=== PATIENT | male | born 1945 | race Caucasian/White ===

== ENCOUNTER 2021-12-03 00:08 | Emergency (ER) | payer OTHER, MEDICAID ==
[~2021-12-03] VITALS: Ht 188 cm; Wt 95.3 kg
[2021-12-03 01:27] VITALS: BP 142/68
== END 2021-12-03 02:43 | disposition home or self-care (01) ==
LOC: ER 00:08
DX: T83.091A Other mechanical complication of indwelling urethral catheter, initial encounter (principal)
CPT/HCPCS: 51702

== ENCOUNTER 2021-12-04 23:48 | Emergency (ER) | payer OTHER, MEDICAID ==
[~2021-12-04] VITALS: Ht 188 cm; Wt 95.3 kg
[2021-12-04 23:50] VITALS: BP 150/84
== END 2021-12-05 16:25 | disposition left against medical advice (07) ==
LOC: ER 23:48
DX: T83.091A Other mechanical complication of indwelling urethral catheter, initial encounter (principal); Z53.21 Procedure and treatment not carried out due to patient leaving prior to being seen by health care provider

== ENCOUNTER 2022-05-30 02:47 | Emergency (ER) | payer OTHER, MEDICAID ==
[~2022-05-30] VITALS: Ht 185.4 cm; Wt 113.0 kg
[2022-05-30 02:47] VITALS: BP 204/93
[2022-05-30 07:40] LABS: Urine Bacteria MANY /hpf (None Seen); Urine Blood 3+ /uL (Negative); Urine Specific Gravity 1.016 (1.001-1.035); Urine WBC 81 /hpf (0 - 3); Urine WBC Clumps PRESENT /hpf (None Seen)
[2022-05-30 08:02] LABS: Alcohol, Urine < 3.0 mg/dL (0-10); Amphetamine Screen, Urine NEGATIVE (NEGATIVE); Barbiturate Scree,Urine NEGATIVE (NEGATIVE); Benzodiazephine Screen, Urine NEGATIVE (NEGATIVE); Cannabinoid Screen, Urine NEGATIVE (NEGATIVE); Cocaine Screen, Urine NEGATIVE (NEGATIVE); Opiate Scree,Urine NEGATIVE (NEGATIVE); Phencyclidine Screen, Urine NEGATIVE (NEGATIVE)
[2022-05-30 08:07] LABS: Basophils # (auto) 0.1 10 ^3/uL (0-0.2); Basophils % (auto) 0.9 % (0.0-2.0); Eosinophils # (auto) 0.1 10 ^3/uL (0-0.8); Eosinophils % (auto) 0.9 % (0.0-7.0); Hematocrit 32.8 % (41.0-53.0); Hemoglobin 9.3 g/dL (13.5-17.5); Lymphocytes % (auto) 7.6 % (10.0-50.0); Mean Corpuscular Hemoglobin 15.3 pg (28.0-32.0); Mean Corpuscular Hgb Conc. 28.2 g/dL (32.0-36.0); Mean Corpuscular Volume 54.3 fL (80.0-100.0); Monocytes # (auto) 0.7 10 ^3/uL (0-1.3); Monocytes % (auto) 5.3 % (0.0-12.0); Neutrophils # (auto) 11.1 10 ^3/uL (1.6-8.6); Neutrophils % (auto) 85.3 % (37.0-80.0); Nucleated Red Blood Cells % 0.1 %; Red Blood Cells 6.04 10^6/uL (4.5-5.90)
[2022-05-30 08:09] LABS: Red Cell Distribution Width 21.5 % (11.8-14.3)
[2022-05-30 08:16] LABS: Albumin 4.1 g/dL (3.4-5.0); Calcium 9.1 mg/dL (8.5-10.1); Potassium 4.8 mmol/L (3.5-5.1)
[2022-05-30 08:20] LABS: BUN/Creatinine Ratio 18.1; Bilirubin, Total 0.5 mg/dL (0.2-1.0); Total Protein 7.9 g/dL (6.4-8.2)
[2022-05-30] MEDS ORDERED: HYDROcodone-ACET 5/325MG TAB PO ONE (08:30)
[2022-05-30] MEDS ORDERED: cefTRIAXone SOD 1,000 MG VL IM ONE (09:00)
[2022-05-30] MEDS ORDERED: cloNIDine HCL 0.1 MG TAB PO ONE (09:00)
== END 2022-05-30 09:41 | disposition left against medical advice (07) ==
LOC: ER 02:47
DX: N39.0 Urinary tract infection, site not specified (principal); I16.0 Hypertensive urgency; T83.9XXA Unspecified complication of genitourinary prosthetic device, implant and graft, initial encounter
CPT/HCPCS: 36415; 51702; 80053; 80307; 81001; 84484; 85025; 99284; J7030

== ENCOUNTER 2022-11-16 00:58 | Emergency (ER) | payer OTHER, MEDICAID ==
[~2022-11-16] VITALS: Ht 185.4 cm; Wt 105.0 kg
[2022-11-16 00:58] VITALS: BP 104/54
[2022-11-16 01:53] LABS: Urine Bacteria MANY /hpf (None Seen); Urine Blood 3+ /uL (Negative); Urine Mucus FEW (None Seen); Urine Specific Gravity 1.012 (1.001-1.035); Urine WBC 959 /hpf (0 - 3); Urine WBC Clumps PRESENT /hpf (None Seen)
== END 2022-11-16 02:14 | disposition left against medical advice (07) ==
LOC: ER 00:58
DX: T83.098A Other mechanical complication of other urinary catheter, initial encounter (principal); Z53.21 Procedure and treatment not carried out due to patient leaving prior to being seen by health care provider
CPT/HCPCS: 81001

== ENCOUNTER 2022-11-18 13:17 | Emergency (ER) | payer OTHER, MEDICAID ==
[~2022-11-18] VITALS: Ht 185.4 cm; Wt 105.5 kg
[2022-11-18] MEDS ORDERED: CIPR-173 PO (15:05)
[2022-11-18 15:07] VITALS: BP 145/82
== END 2022-11-18 15:13 | disposition home or self-care (01) ==
LOC: ER 13:17
DX: N39.0 Urinary tract infection, site not specified (principal); I10 Essential (primary) hypertension; Z46.6 Encounter for fitting and adjustment of urinary device

== ENCOUNTER 2022-12-14 08:45 | Inpatient (IN) | payer OTHER, MEDICAID ==
[~2022-12-14] VITALS: Ht 185.4 cm; Wt 108.1 kg
[~2022-12-14 08:45] MED LIST: CIPR-173 PO
[2022-12-14] MEDS ORDERED: levoFLOXacin 500MG 100 ML IV ONE (10:00)
[2022-12-14 10:05] LABS: Urine Bacteria FEW /hpf (None Seen); Urine Blood 3+ /uL (Negative); Urine Specific Gravity 1.014 (1.001-1.035); Urine WBC 101 /hpf (0 - 3)
[2022-12-14] MEDS ORDERED: LIDOCAINE 2% JELLY 11ml (GLYDO) ONE (10:36)
[2022-12-14] MEDS ORDERED: cefTRIAXone 1GM/50ML D5W 50 ML IV ONE (11:15)
[2022-12-14] MEDS ORDERED: LIDOCAINE 2% JELLY 11ml (GLYDO) UR ONE (11:15)
[2022-12-14] MEDS ORDERED: LACTATED RINGER'S 1,000 ML IV ONE (11:15)
[2022-12-14 11:36] LABS: Basophils # (auto) 0.1 10 ^3/uL (0-0.2); Eosinophils # (auto) 0 10 ^3/uL (0-0.8); Eosinophils % (auto) 0.1 % (0.0-7.0); Hemoglobin 8.6 g/dL (13.5-17.5); Lymphocytes # (auto) 0.3 10 ^3/uL (0.4-5.4); Lymphocytes % (auto) 2.7 % (10.0-50.0); Nucleated Red Blood Cells % 0.1 %
[2022-12-14 11:38] LABS: Basophils % (auto) 0.4 % (0.0-2.0); Hematocrit 29.9 % (41.0-53.0); Mean Corpuscular Hemoglobin 20.6 pg (28.0-32.0); Mean Corpuscular Hgb Conc. 28.8 g/dL (32.0-36.0); Mean Corpuscular Volume 71.8 fL (80.0-100.0); Monocytes # (auto) 0.9 10 ^3/uL (0-1.3); Monocytes % (auto) 7.2 % (0.0-12.0); Neutrophils # (auto) 10.6 10 ^3/uL (1.6-8.6); Neutrophils % (auto) 89.6 % (37.0-80.0); Red Blood Cells 4.17 10^6/uL (4.5-5.90); White Blood Cell 11.9 10^3/uL (4.4-10.8)
[2022-12-14 11:48] LABS: Red Cell Distribution Width 30.2 % (11.8-14.3)
[2022-12-14 11:56] LABS: Albumin 3.7 g/dL (3.4-5.0); Calcium 9.1 mg/dL (8.5-10.1); Potassium 4.3 mmol/L (3.5-5.1)
[2022-12-14 12:03] LABS: Bilirubin, Total 0.7 mg/dL (0.2-1.0); Total Protein 7.4 g/dL (6.4-8.2)
[2022-12-14] MEDS ORDERED: DOCUSATE SOD 100 MG CAP PO PRN (15:15)
[2022-12-14] MEDS ORDERED: ONDANSETRON HCL 4 MG/2 ML VIAL IV PRN (15:15)
[2022-12-14] MEDS ORDERED: MORPHINE SULFATE INJ 2 MG/ml SYRG IV PRN (15:15)
[2022-12-14] MEDS ORDERED: SODIUM CHLORIDE 0.9% 1,000 ML IV ONE (15:15)
[2022-12-14 16:28] LABS: INR 1.08 (0.9-1.15)
[2022-12-14] MEDS ORDERED: DEXTROSE (50%) 50ML SYRG IV PRN (16:30)
[2022-12-14] MEDS: ACCU-CHEK COMFORT CURVE STRIP VI SCH ×2 (17:29→22:00)
[2022-12-14] MEDS: InsuLIN REG 1unit/0.01ml Soln (100units/ml) SC SCH ×2 (17:30→22:00)
[2022-12-14 18:17] LABS: Hematocrit 27.4 % (41.0-53.0); Hemoglobin 8.1 g/dL (13.5-17.5)
[2022-12-14 18:37] LABS: Lactic Acid w/Reflex 2.5 mmol/L (0.4-2.0)
[2022-12-14 21:10] VITALS: BP 148/54
[2022-12-14 21:25] VITALS: BP 157/72
[2022-12-14] MEDS: SODIUM CHLORIDE 0.9% 1,000 ML IV SCH (23:35)
[2022-12-14 23:50] VITALS: BP 150/78
[2022-12-15] MEDS: SODIUM CHLORIDE 0.9% 1,000 ML IV SCH ×3 (00:57→16:15)
[2022-12-15 01:34] LABS: Hemoglobin 7.7 g/dL (13.5-17.5)
[2022-12-15 01:36] LABS: Hematocrit 25.5 % (41.0-53.0)
[2022-12-15] MEDS ORDERED: CAPE500T PO (02:13)
[2022-12-15 05:00] VITALS: BP 135/65
[2022-12-15] MEDS: InsuLIN REG 1unit/0.01ml Soln (100units/ml) SC SCH ×3 (07:00→17:00)
[2022-12-15] MEDS: ACCU-CHEK COMFORT CURVE STRIP VI SCH ×3 (07:01→17:00)
[2022-12-15 08:46] VITALS: BP 138/60
[2022-12-15 08:51] LABS: Basophils # (auto) 0 10 ^3/uL (0-0.2); Eosinophils # (auto) 0.2 10 ^3/uL (0-0.8); Hemoglobin 8.5 g/dL (13.5-17.5); Monocytes # (auto) 0.7 10 ^3/uL (0-1.3); Neutrophils # (auto) 4.4 10 ^3/uL (1.6-8.6)
[2022-12-15 08:54] LABS: Basophils % (auto) 0.5 % (0.0-2.0); Eosinophils % (auto) 2.8 % (0.0-7.0); Hematocrit 28.2 % (41.0-53.0); Lymphocytes # (auto) 0.8 10 ^3/uL (0.4-5.4); Lymphocytes % (auto) 13.5 % (10.0-50.0); Mean Corpuscular Hemoglobin 21.4 pg (28.0-32.0); Mean Corpuscular Volume 71.2 fL (80.0-100.0); Monocytes % (auto) 10.9 % (0.0-12.0); Neutrophils % (auto) 72.3 % (37.0-80.0); Nucleated Red Blood Cells % 0.1 %; Red Blood Cells 3.96 10^6/uL (4.5-5.90); White Blood Cell 6.1 10^3/uL (4.4-10.8)
[2022-12-15 08:58] LABS: Red Cell Distribution Width 30.5 % (11.8-14.3)
[2022-12-15 09:16] LABS: Albumin 3.2 g/dL (3.4-5.0); Calcium 8.8 mg/dL (8.5-10.1)
[2022-12-15 09:20] LABS: BUN/Creatinine Ratio 13.9 (10.0-20.0); Bilirubin, Total 1.1 mg/dL (0.2-1.0); Total Protein 6.4 g/dL (6.4-8.2)
[2022-12-15] MEDS ORDERED: PANTOPRAZOLE 40 MG/10 ML VIAL INJ IV SCH (10:00)
[2022-12-15] MEDS ORDERED: levoFLOXacin 250MG 50 ML IV SCH (10:00)
[2022-12-15 12:31] VITALS: BP 151/73
[2022-12-15 13:26] LABS: Hemoglobin 8.2 g/dL (13.5-17.5)
[2022-12-15 13:29] LABS: Hematocrit 27.2 % (41.0-53.0)
[2022-12-15 16:38] VITALS: BP 148/71
[2022-12-15] MEDS ORDERED: CEFEPIME 2 GM in SODIUM CHL 0.9% 50 ML IV SCH (22:00)
[2022-12-16] MEDS ORDERED: AMOX500T86 PO (13:04)
== END 2022-12-15 19:55 | disposition left against medical advice (07) | DRG 698 ==
LOC: ER 08:45 → TELE 15:14 → TELE-WESTW 22:08
PROVIDERS: ADMIT Nurse Practitioner Family; ATTEND Family Medicine
PROC: 30233N1 Transfusion of Nonautologous Red Blood Cells into Peripheral Vein, Percutaneous Approach (ICD-10-PCS; principal; 2022-12-14)
DX: T83.9XXA Unspecified complication of genitourinary prosthetic device, implant and graft, initial encounter (principal); A41.9 Sepsis, unspecified organism; D62 Acute posthemorrhagic anemia; N17.9 Acute kidney failure, unspecified; N39.0 Urinary tract infection, site not specified; D63.8 Anemia in other chronic diseases classified elsewhere; E86.0 Dehydration; I10 Essential (primary) hypertension; R33.9 Retention of urine, unspecified; E11.9 Type 2 diabetes mellitus without complications; Z53.21 Procedure and treatment not carried out due to patient leaving prior to being seen by health care provider; R31.0 Gross hematuria; Y84.6 Urinary catheterization as the cause of abnormal reaction of the patient, or of later complication, without mention of misadventure at the time of the procedure; R91.1 Solitary pulmonary nodule; Y92.89 Other specified places as the place of occurrence of the external cause; Z90.49 Acquired absence of other specified parts of digestive tract; Z87.440 Personal history of urinary (tract) infections; Z85.038 Personal history of other malignant neoplasm of large intestine
CPT/HCPCS: 36415; 74176; 80053; 81001; 82962; 83036; 83605; 85014; 85018; 85025; 85610; 86850; 86900; 86901; 86920; 87040; 87086; 87088; 87186; 93005; 96361; 96365; C9113; G0378; J0696; J1956

== ENCOUNTER 2022-12-16 11:07 | Emergency (ER) | payer OTHER, MEDICAID ==
[~2022-12-16] VITALS: Ht 185.4 cm; Wt 108.0 kg
[~2022-12-16 11:07] MED LIST changes: +CAPE500T PO; -CIPR-173 PO
[2022-12-16] MEDS ORDERED: AMOX500T86 PO (13:04)
[2022-12-16 13:45] VITALS: BP 136/87
== END 2022-12-16 14:04 | disposition home or self-care (01) ==
LOC: ER 11:07
DX: N39.0 Urinary tract infection, site not specified (principal); I10 Essential (primary) hypertension; Z79.899 Other long term (current) drug therapy

== ENCOUNTER 2022-12-18 14:16 | Emergency (ER) | payer OTHER, MEDICAID ==
[~2022-12-18] VITALS: Ht 185.4 cm; Wt 105.0 kg
[~2022-12-18 14:16] MED LIST changes: +AMOX500T86 PO
[2022-12-18] MEDS ORDERED: ERTAPENEM SOD INJ 1 GM in SODIUM CHL 0.9% 50 ML IV ONE (19:15)
[2022-12-18 20:26] VITALS: BP 153/75
== END 2022-12-18 20:57 | disposition home or self-care (01) ==
LOC: ER 14:16
DX: N39.0 Urinary tract infection, site not specified (principal); I10 Essential (primary) hypertension; Z88.1 Allergy status to other antibiotic agents
CPT/HCPCS: 96374; 99283; J1335

== ENCOUNTER 2023-06-06 03:33 | Emergency (ER) | payer BC, MEDICAID ==
[~2023-06-06] VITALS: Ht 182.9 cm; Wt 100.0 kg
[2023-06-06 03:33] VITALS: BP 146/62; PULSE 112; RESP 20; TEMP 97.7
[2023-06-06] MEDS ORDERED: diphenhdrAMINE HCL 50 MG/1 ML VL IM ONE (04:00)
[2023-06-06] MEDS ORDERED: methylPREDNISolone SOD SUCC 40 MG/ML VL IM ONE (04:00)
[2023-06-06 07:04] VITALS: O2SAT 96
[2023-06-06] MEDS ORDERED: HYDR-4297 PO (07:27)
[2023-06-06] MEDS ORDERED: DIPH25CA66 PO (07:27)
== END 2023-06-06 08:24 | disposition home or self-care (01) ==
LOC: ER 03:33
DX: T78.40XA Allergy, unspecified, initial encounter (principal); I10 Essential (primary) hypertension; Z79.2 Long term (current) use of antibiotics; Z79.899 Other long term (current) drug therapy; Y92.89 Other specified places as the place of occurrence of the external cause
CPT/HCPCS: 96372; 99284; J1200; J2920

== ENCOUNTER 2023-09-05 21:44 | Emergency (ER) | payer BC, MEDICAID ==
[~2023-09-05] VITALS: Ht 185.4 cm; Wt 100.0 kg
[~2023-09-05 21:44] MED LIST changes: +DIPH25CA66 PO; +HYDR-4297 PO
[2023-09-06 02:55] VITALS: BP 139/60; TEMP 97.8
[2023-09-06 02:58] LABS: Urine Bacteria MANY /hpf (None Seen); Urine Blood 3+ /uL (Negative); Urine Clarity CLOUDY (Clear); Urine Color Yellow (Yellow); Urine Protein, UAD 3+ (Negative); Urine Specific Gravity 1.018 (1.001-1.035); Urine Urobilinogen Normal (Negative); Urine WBC 882 /hpf (0 - 3); Urine WBC Clumps PRESENT /hpf (None Seen)
[2023-09-06] MEDS ORDERED: SODIUM CHLORIDE 0.9% 1,000 ML IV ONE (03:00)
[2023-09-06] MEDS ORDERED: cefTRIAXone 1GM/50ML D5W 50 ML IV ONE (03:00)
[2023-09-06] MEDS ORDERED: SULF800T23 PO (04:02)
[2023-09-06 04:13] VITALS: PULSE 105; RESP 17; O2SAT 95
== END 2023-09-06 05:08 | disposition home or self-care (01) ==
LOC: ER 21:44
DX: R33.9 Retention of urine, unspecified (principal); D29.1 Benign neoplasm of prostate; I10 Essential (primary) hypertension; Z79.2 Long term (current) use of antibiotics; Z79.899 Other long term (current) drug therapy
CPT/HCPCS: 51702; 81001; 96365; 99284; J0696; J7030

== ENCOUNTER 2023-09-17 01:41 | Emergency (ER) | payer BC, MEDICAID ==
[~2023-09-17] VITALS: Ht 185.4 cm; Wt 100.0 kg
[~2023-09-17 01:41] MED LIST changes: +SULF800T23 PO
[2023-09-17 02:01] VITALS: BP 179/89; PULSE 100; RESP 18; TEMP 98.6; O2SAT 96
[2023-09-17] MEDS ORDERED: cefTRIAXone SOD 1,000 MG VL IM ONE (04:15)
[2023-09-17] MEDS ORDERED: BACDST PO (04:32)
== END 2023-09-17 05:56 | disposition home or self-care (01) ==
LOC: ER 01:41
DX: T83.091A Other mechanical complication of indwelling urethral catheter, initial encounter (principal); N39.0 Urinary tract infection, site not specified; R33.9 Retention of urine, unspecified; I10 Essential (primary) hypertension
CPT/HCPCS: 51702; 81002; 96372; 99284; J0696

== ENCOUNTER 2023-11-20 20:15 | Emergency (ER) | payer BC, MEDICAID ==
[~2023-11-20] VITALS: Ht 185.4 cm; Wt 95.0 kg
[2023-11-20 20:15] VITALS: BP 184/83; PULSE 115; RESP 16; O2SAT 94
[~2023-11-20 20:15] MED LIST changes: +BACDST PO; -HYDR-4297 PO; +HYDR50TA47 PO
[2023-11-20] MEDS ORDERED: CEPH250C PO (21:32)
== END 2023-11-20 23:25 | disposition home or self-care (01) ==
LOC: ER 20:15
DX: T83.011A Breakdown (mechanical) of indwelling urethral catheter, initial encounter (principal); E11.9 Type 2 diabetes mellitus without complications; I10 Essential (primary) hypertension; R33.9 Retention of urine, unspecified
CPT/HCPCS: 51702

== ENCOUNTER 2023-12-17 05:55 | Emergency (ER) | payer BC, MEDICAID ==
[~2023-12-17] VITALS: Ht 185.4 cm; Wt 102.4 kg
[~2023-12-17 05:55] MED LIST changes: +CEPH250C PO
[2023-12-17 06:22] VITALS: BP 150/74; PULSE 77; RESP 17; O2SAT 96
== END 2023-12-17 12:08 | disposition home or self-care (01) ==
LOC: ER 05:55
DX: T83.091A Other mechanical complication of indwelling urethral catheter, initial encounter (principal); R33.9 Retention of urine, unspecified; E11.9 Type 2 diabetes mellitus without complications; I10 Essential (primary) hypertension
CPT/HCPCS: 51702

== ENCOUNTER 2024-01-10 03:24 | Emergency (ER) | payer BC, MEDICAID ==
[~2024-01-10] VITALS: Ht 185.4 cm; Wt 95.4 kg
[2024-01-10 03:47] VITALS: BP 198/129; PULSE 111; RESP 16; O2SAT 97
[2024-01-10 04:45] LABS: Urine Bacteria MANY /hpf (None Seen); Urine Blood 1+ /uL (Negative); Urine Clarity Clear (Clear); Urine Color Light-Yellow (Yellow); Urine Mucus FEW (None Seen); Urine Protein, UAD 2+ (Negative); Urine Specific Gravity 1.014 (1.001-1.035); Urine Urobilinogen Normal (Negative); Urine WBC 33 /hpf (0 - 3)
[2024-01-10] MEDS: hydrALAZINE HCL 10 MG TAB PO ONE (05:34)
[2024-01-10] MEDS ORDERED: CIPR-173 PO (05:51)
== END 2024-01-10 06:41 | disposition left against medical advice (07) ==
LOC: ER 03:24
DX: T83.098A Other mechanical complication of other urinary catheter, initial encounter (principal); I10 Essential (primary) hypertension; E11.9 Type 2 diabetes mellitus without complications; N40.0 Benign prostatic hyperplasia without lower urinary tract symptoms; Z86.2 Personal history of diseases of the blood and blood-forming organs and certain disorders involving the immune mechanism; Z85.038 Personal history of other malignant neoplasm of large intestine; Z79.899 Other long term (current) drug therapy; Z79.2 Long term (current) use of antibiotics
CPT/HCPCS: 51702; 81001

== ENCOUNTER 2025-03-15 04:32 | Emergency (ER) | payer BC, MEDICAID ==
[~2025-03-15] VITALS: Ht 185.4 cm; Wt 108.2 kg
[~2025-03-15 04:32] MED LIST changes: +CIPR-173 PO
--- NOTE | 2025-03-15 04:49 | ED.PDOC ---
General HPI Comments PT PRESENTED TO ED FOR BLADDER DISCOMFORT AND NO URINE DRAINING INTO HEAD LEG BAG X3 DAYS. PATIENT STATES CURRENTLY ON BACTRIM FOR UTI HAS ONLY BEEN 2 DAYS. Chief Complaint: Tube Replacement Time Seen by MD: 04:42 Primary Care Provider: TATE Nguyen notes: Nurses Notes, Medications, Allergies Allergies: Coded Allergies: NO KNOWN ALLERGIES (Unverified , 12/03/21) Home Meds Active Scripts Ciprofloxacin Hcl (Cipro) 500 Mg Tab, 1 TAB PO BID for 10 Days, #20 TAB Prov:TYRON LYONS MD 01/10/24 Cephalexin (KEFLEX CAPSULE) 250 Mg Cp, 1 CAP PO QID for 10 Days, #40 CAP Prov:TYRON LYONS MD 11/20/23 Sulfamethoxazole W/Trimethopri (Bactrim Ds Tablet) 1 Tab Tb, 1 TAB PO BID for 3 Days, #6 TAB Prov:GENEVA GONSALVES Q EXTRUSION PRESS ADJUSTER 09/17/23 Sulfamethoxazole W/Trimethopri (Trimethoprim/Sulfamethoxa) 1 Tab Tab, 1 TAB PO BID for 7 Days, #14 TAB 0 Refills Prov:GUZMAN FELDER 09/06/23 Diphenhydramine Hcl (Benadryl Allergy) 25 Mg Cap, 1 CAP PO Q6HP PRN, #30 CAP 0 Refills Prov:SANDRA DORADO PAC 06/06/23 Hydralazine Hcl (Hydralazine Hcl) 50 Mg Tab, 1 TAB PO TID, #20 TAB 0 Refills Prov:SANDRA DORADO PAC 06/06/23 Amoxicillin & Pot Clavulanate (Augmentin) 500 Mg Tab, 1 TAB PO BID, #20 TAB Prov:MATILDE OSCAR MD 12/16/22 Reported Medications Capecitabine (Xeloda) 500 Mg Tab, 2 TAB PO BID for colon cancer 12/15/22 Past Medical History PAST MEDICAL HISTORY: Anemia, Cancer, DM, UTI'S Surgical History: Denies all surgeries Family History Family History: Reviewed,noncontributory to illness Social History Smoker: Non-Smoker Alcohol: Occasionally Drugs: Denies Drug Use Lives In: Home Constitutional: denies: chills, diaphoresis, fatigue, fever, malaise, sweats, weakness, others EENTM: denies: blurred vision, double vision, ear bleeding, ear discharge, ear drainage, ear pain, ear ringing, eye pain, eye redness, hearing loss, mouth pain, mouth swelling, nasal discharge, nose bleeding, nose congestion, nose pain, photophobia, tearing, throat pain, throat swelling, voice changes, others Respiratory: denies: cough, hemoptysis, orthopnea, SOB at rest, shortness of b reath, SOB with excertion, stridor, wheezing, others Cardiovascular: denies: chest pain, dizzy spells, diaphoresis, Dyspnea on exertion, edema, irregular heart beat, left arm pain, lightheadedness, palpitations, PND, syncope, others Gastrointestinal: denies: abdomen distended, abdominal pain, blood streaked bowels, constipated, diarrhea, dysphagia, difficulty swallowing, hematemesis, melena, nausea, poor appetite, poor fluid intake, rectal bleeding, rectal pain, vomiting, others Genitourinary: reports: dysuria, pain; denies: burning, flank pain, frequency, hematuria, incontinence, penile discharge, penile sore, testicle pain, testicle swelling, urgency, others Neurological: denies: dizziness, fainting, headache, left sided numbness, left sided weakness, numbness, paresthesia, pre-existing deficit, right sided numbness, right sided weakness, seizure, speech problems, tingling, tremors, weakness, others Musculoskeletal: denies: back pain, gout, joint pain, joint swelling, muscle pain, muscle stiffness, neck pain, others Integumetry: denies: bruises, change in color, change in hair/nails, dryness, laceration, lesions, lumps, rash, wounds, others Allergic/Immunocompromised: denies: Difficulty Healing, Frequent Infections, Hives, Itching, others Hematologic/Lymphatic: denies: anemia, blood clots, easy bleeding, easy bruising, swollen glands, others Endocrine: denies: excessive hunger, excessive sweating, excessive thirst, excessive urination, flushing, intolerance to cold, intolerance to heat, unexplained weight gain, unexplained weight loss, others Psychiatric: denies: anxiety, bipolar disorder, depression, hopeless, panic disorder, schizophrenia, sleepless, suicidal, others Physical Exam General Appearance: No Apparent Distress, Normal HEENT: Pharynx Normal Neck: Full Range of Motion, Non-Tender Respiratory: Lungs Clear, No Respiratory Distress, Normal Breath Sounds Cardiovascular: No Murmur, Normal Peripheral Pulses, Regular Rate/Rhythm Breast Exam: Deferred Gastrointestinal: No Organomegaly, Soft, Suprapubic (tenderness ) Genitalia: Deferred Pelvic: Deferred Rectal: Deferred Extremities: Normal range of motion Musculoskeletal : Apperance: Normal Neurologic: Alert, No Motor Deficits, Normal Affect, Normal Mood, No Sensory Deficits Cerebellar Function: Normal Reflexes: Normal Skin: Dry, Normal Color, Warm Lymphatic: No Adenopathy Was a procedure done? Was a procedure done?: No Differential Diagnosis Kidney stone (Female): N/A Kidney stone (Male): Urinary obstruction, Urolithiasis, Urinary tract infection X-Ray, Labs, Meds, VS Vital Signs Date Time Temp Pulse Resp B/P (MAP) Pulse Ox O2 Delivery O2 Flow Rate FiO2 03/15/25 04:44 97.8 122 18 190/117 (141) 98 97.8 X-Ray, Labs, Meds, VS Comment HEAD CATHETER PLACE GOOD RETURN 1000 ML OUT. ADVISED PATIENT TO FOLLOW UP WITH HIS UROLOGIST SCHEDULED. HE WAS ANTIBIOTICS PRESCRIBED. ADVISED ON ER RETURN PRECAUTIONS PATIENT INDICATES UNDERSTANDING AGREES WITH DISCHARGE PLAN OF CARE. Time of 1ST Reevaluation: 04:48 Reevaluation 1ST: Unchanged Time of 2ND Reevaluation: 05:10 Reevaluation 2ND: Improved Patient Education/Counseling: Diagnosis, Treatment, Prognosis, Need For Follow Up Family Education/Counseling: No Family Present SEPSIS Sepsis Screen Vital Signs Date Time Temp Pulse Resp B/P (MAP) Pulse Ox O2 Delivery O2 Flow Rate FiO2 03/15/25 04:44 97.8 122 18 190/117 (141) 98 97.8 Departure 1 Departure Time of Disposition: 05:10 Impression: Primary Impression: Complication of Head catheter Qualified Codes: T83.9XXA - Unspecified complication of genitourinary prosthetic device, implant and graft, initial encounter Disposition: HOME / SELF CARE / HOMELESS Condition: Stable Discharged With: Self Critical Care Note Critical Care Time?: No Stability Stability form required: YANCI Saravia Mar 15, 2025 04:49
[2025-03-15 05:15] VITALS: PULSE 102; RESP 18; O2SAT 98
[2025-03-15 05:18] VITALS: BP 167/85; PULSE 102; RESP 20; TEMP 98; O2SAT 98
== END 2025-03-15 05:25 | disposition home or self-care (01) ==
LOC: ER 04:32
DX: T83.9XXA Unspecified complication of genitourinary prosthetic device, implant and graft, initial encounter (principal); E11.9 Type 2 diabetes mellitus without complications; Z79.899 Other long term (current) drug therapy
CPT/HCPCS: 51702; 99284; A4315

== ENCOUNTER 2025-03-15 10:44 | Emergency (ER) | payer BC, MEDICAID ==
[~2025-03-15] VITALS: Ht 185.4 cm; Wt 107.5 kg
[2025-03-15 10:59] VITALS: TEMP 98.2
--- NOTE | 2025-03-15 10:59 | ED.PDOC ---
History of Present Illness HPI Comments This is a 79 year old male presenting to the ED with chief complaint of Briceno catheter concern. Patient reports that he was seen this morning at 3:30am, having his Briceno catheter changed due to it being clogged. Patient relays that after getting home, his Briceno catheter clogged again 2 hours later. Patient s tates that he had a 16g placed this morning, but he normally has an 18g or 22g. Patient notes that he has been experiencing hematuria, causing the clogging due to blood clots. Patient denies any dysuria, abdominal pain, flank pain, fever, or chills. Patient declined work up. Time Seen by MD: 10:56 Primary Care Provider: TATE Reviewed Notes: Nurses Notes, Medications, Allergies Allergies: Coded Allergies: NO KNOWN ALLERGIES (Unverified , 12/03/21) Home Meds Active Scripts Ciprofloxacin Hcl (Cipro) 500 Mg Tab, 1 TAB PO BID for 10 Days, #20 TAB Prov:TYRON LYONS MD 01/10/24 Cephalexin (KEFLEX CAPSULE) 250 Mg Cp, 1 CAP PO QID for 10 Days, #40 CAP Prov:TYRON LYONS MD 11/20/23 Sulfamethoxazole W/Trimethopri (Bactrim Ds Tablet) 1 Tab Tb, 1 TAB PO BID for 3 Days, #6 TAB Prov:GENEVA GONSALVES SEARCH ENGINEER 09/17/23 Sulfamethoxazole W/Trimethopri (Trimethoprim/Sulfamethoxa) 1 Tab Tab, 1 TAB PO BID for 7 Days, #14 TAB 0 Refills Prov:GUZMAN FELDER 09/06/23 Diphenhydramine Hcl (Benadryl Allergy) 25 Mg Cap, 1 CAP PO Q6HP PRN, #30 CAP 0 Refills Prov:ASNDRA DORADO PAC 06/06/23 Hydralazine Hcl (Hydralazine Hcl) 50 Mg Tab, 1 TAB PO TID, #20 TAB 0 Refills Prov:SANDRA DORADO PAC 06/06/23 Amoxicillin & Pot Clavulanate (Augmentin) 500 Mg Tab, 1 TAB PO BID, #20 TAB Prov:MATILDE OSCAR MD 12/16/22 Reported Medications Capecitabine (Xeloda) 500 Mg Tab, 2 TAB PO BID for colon cancer 12/15/22 Information Source: Patient Mode of Arrival: Ambulatory Severity: Mild Timing: Hours Duration: Since onset Prehospital treatment: None Past Medical History PAST MEDICAL HISTORY: Anemia, Cancer, DM, UTI'S Surgical History: Denies all surgeries Family History Family History: Reviewed,noncontributory to illness Social History Smoker: Non-Smoker Alcohol: Occasionally Drugs: Denies Drug Use Lives In: Home Constitutional: denies: chills, diaphoresis, fatigue, fever, malaise, sweats, weakness, others EENTM: denies: blurred vision, double vision, ear bleeding, ear discharge, ear drainage, ear pain, ear ringing, eye pain, eye redness, hearing loss, mouth pain, mouth swelling, nasal discharge, nose bleeding, nose congestion, nose pain, photophobia, tearing, throat pain, throat swelling, voice changes, others Respiratory: denies: cough, hemoptysis, orthopnea, SOB at rest, shortness of breath, SOB with excertion, stridor, wheezing, others Cardiovascular: denies: chest pain, dizzy spells, diaphoresis, Dyspnea on exertion, edema, irregular heart beat, left arm pain, lightheadedness, palpitations, PND, syncope, others Gastrointestinal: denies: abdomen distended, abdominal pain, blood streaked bowels, constipated, diarrhea, dysphagia, difficulty swallowing, hematemesis, melena, nausea, poor appetite, poor fluid intake, rectal bleeding, rectal pain, vomiting, others Genitourinary: reports: hematuria; denies: burning, dysuria, flank pain, frequency, incontinence, penile discharge, penile sore, pain, testicle pain, testicle swelling, urgency, others Neurological: denies: dizziness, fainting, headache, left sided numbness, left sided weakness, numbness, paresthesia, pre-existing deficit, right sided numbness, right sided weakness, seizure, speech problems, tingling, tremors, we akness, others Musculoskeletal: denies: back pain, gout, joint pain, joint swelling, muscle pain, muscle stiffness, neck pain, others Integumetry: denies: bruises, change in color, change in hair/nails, dryness, laceration, lesions, lumps, rash, wounds, others Allergic/Immunocompromised: denies: Difficulty Healing, Frequent Infections, Hives, Itching, others Hematologic/Lymphatic: denies: anemia, blood clots, easy bleeding, easy bruising, swollen glands, others Endocrine: denies: excessive hunger, excessive sweating, excessive thirst, excessive urination, flushing, intolerance to cold, intolerance to heat, unexplained weight gain, unexplained weight loss, others Psychiatric: denies: anxiety, bipolar disorder, depression, hopeless, panic disorder, schizophrenia, sleepless, suicidal, others All Other Systems: Reviewed and Negative Physical Exam General Appearance: No Apparent Distress, Normal HEENT: Normal ENT Inspection, Pharynx Normal, TMs Normal Neck: Non-Tender, Normal, Normal Inspection Respiratory: Chest Non-Tender, Lungs Clear, No Accessory Muscle Use, No Respiratory Distress, Normal Breath Sounds Cardiovascular: No Murmur, No Gallop, Normal Peripheral Pulses, Regular Rate/Rhythm Breast Exam: Deferred Gastrointestinal: No Organomegaly, Non Tender, No Pulsatile Mass, Normal Bowel Sounds, Soft Genitalia: Other (Briceno catheter in place with leg bag.) Pelvic: Deferred Rectal: Deferred Extremities: No calf tenderness, Normal capillary refill, Normal inspection, Normal range of motion, Non-tender, No pedal edema Musculoskeletal : Apperance: Normal Neurologic: Alert, us marketing director II-XII nml as Tested, No Motor Deficits, Normal Affect, Normal Mood, No Sensory Deficits Cerebellar Function: NOT DONE Reflexes: NOT DONE Skin: Dry, Normal Color, Warm Lymphatic: NOT DONE Was a procedure done? Was a procedure done?: No Differential Dx Considerations may include: BPH, UTI, nephrolithiasis, pyelonephritis X-Ray, Labs, Meds, VS Vital Signs Date Time Temp Pulse Resp B/P (MAP) Pulse Ox O2 Delivery O2 Flow Rate FiO2 03/15/25 10:59 98.2 120 20 161/89 (113) 98 98.2 X-Ray, Labs, Meds, VS Comment This pleasant 71-year-old male presents secondary hematuria. Patient was seen earlier in the day and had his Briceno catheter and leg bag swabbed out. The patient went home, and the catheter became clogged again with a blood clot. The patient was very adamant that he would only we will want his Briceno replaced with a larger gauge and bowel irrigation. This was ordered. Patient was discharged home. He is asked to follow up with the urologist and PCP in the next 1-2 days return to the ER for any new/worse/worsening symptoms. Time of 1ST Reevaluation: 11:55 Reevaluation 1ST: Improved Patient Education/Counseling: Diagnosis, Treatment Family Education/Counseling: No Family Present SEPSIS Sepsis Screen Physician Orders Nursing Communication:Document (03/15/25 10:54) Insert/Manage Urinary Catheter QSHIFT (03/15/25 10:54) Vital Signs Date Time Temp Pulse Resp B/P (MAP) Pulse Ox O2 Delivery O2 Flow Rate FiO2 03/15/25 10:59 98.2 120 20 161/89 (113) 98 98.2 Departure 1 Departure Time of Disposition: 11:26 Impression: Primary Impression: Urinary retention due to benign prostatic hyperplasia Additional Impression: Hematuria Disposition: 01 HOME / SELF CARE / HOMELESS Condition: Good Critical Care Note Critical Care Time?: No Stability Stability form required: No Heart Score Heart Score: Heart Score Response (Comments) Value History N/A 0 EKG N/A 0 Age N/A 0 Risk Factors N/A 0 Troponin N/A 0 Total 0 I personally scribed for KONG BRAXTON MD ([email or web address]) on 03/15/25 at 10:59. Electronically submitted by Lan Lockhart ([email or web address]). KONG BRAXTON MD Mar 15, 2025 10:59
[2025-03-15 17:19] VITALS: BP 166/75; PULSE 89; RESP 13; O2SAT 92
== END 2025-03-15 18:05 | disposition home or self-care (01) ==
LOC: ER 10:44
DX: N40.1 Benign prostatic hyperplasia with lower urinary tract symptoms (principal); R31.9 Hematuria, unspecified; E11.9 Type 2 diabetes mellitus without complications; Z79.899 Other long term (current) drug therapy
CPT/HCPCS: 51702; 99285; A4315

== ENCOUNTER 2025-03-18 00:24 | Emergency (ER) | payer BC, MEDICAID ==
[~2025-03-18] VITALS: Ht 185.4 cm; Wt 108.0 kg
[2025-03-18 00:30] VITALS: BP 199/99; PULSE 103; RESP 16; TEMP 97.8; O2SAT 95
--- NOTE | 2025-03-18 02:05 | ED.PDOC ---
General HPI Comments PT PRESENTS TO ED FOR CC OF URINARY RETENTION/CATHETER NOT DRAINING PROPERLY. HX OF CHRONIC HEAD CATH. REPORTS RECENTLY CHANGING CATHETER CHANGE. DENIES FEVER, CHILLS, NAUSEA, VOMITING, OR FLANK PAIN. Chief Complaint: Urinary Time Seen by MD: 00:27 Primary Care Provider: TATE Nguyen notes: Nurses Notes, Medications, Allergies Allergies: Coded Allergies: NO KNOWN ALLERGIES (Unverified , 12/03/21) Home Meds Active Scripts Ciprofloxacin Hcl (Cipro) 500 Mg Tab, 1 TAB PO BID for 10 Days, #20 TAB Prov:TYRON LYONS MD 01/10/24 Cephalexin (KEFLEX CAPSULE) 250 Mg Cp, 1 CAP PO QID for 10 Days, #40 CAP Prov:TYRON LYONS MD 11/20/23 Sulfamethoxazole W/Trimethopri (Bactrim Ds Tablet) 1 Tab Tb, 1 TAB PO BID for 3 Days, #6 TAB Prov:GENEVA GONSALVES SEED DISTRICT SALES MANAGER 09/17/23 Sulfamethoxazole W/Trimethopri (Trimethoprim/Sulfamethoxa) 1 Tab Tab, 1 TAB PO BID for 7 Days, #14 TAB 0 Refills Prov:GUZMAN FELDER 09/06/23 Diphenhydramine Hcl (Benadryl Allergy) 25 Mg Cap, 1 CAP PO Q6HP PRN, #30 CAP 0 Refills Prov:SANDRA DORADO PAC 06/06/23 Hydralazine Hcl (Hydralazine Hcl) 50 Mg Tab, 1 TAB PO TID, #20 TAB 0 Refills Prov:SANDRA DORADO PAC 06/06/23 Amoxicillin & Pot Clavulanate (Augmentin) 500 Mg Tab, 1 TAB PO BID, #20 TAB Prov:MATILDE OSCAR MD 12/16/22 Reported Medications Capecitabine (Xeloda) 500 Mg Tab, 2 TAB PO BID for colon cancer 12/15/22 Information Source: Patient Mode of Arrival: Ambulatory Past Medical History PAST MEDICAL HISTORY: Anemia, Cancer, DM, UTI'S Surgical History: Denies all surgeries Family History Family History: Reviewed,noncontributory to illness Social History Smoker: Non-Smoker Alcohol: Occasionally Drugs: Denies Drug Use Lives In: Home Constitutional: denies: chills, diaphoresis, fatigue, fever, malaise, sweats, weakness, others EENTM: denies: blurred vision, double vision, ear bleeding, ear discharge, ear drainage, ear pain, ear ringing, eye pain, eye redness, hearing loss, mouth pain, mouth swelling, nasal discharge, nose bleeding, nose congestion, nose pain, photophobia, tearing, throat pain, throat swelling, voice changes, others Respiratory: denies: cough, hemoptysis, orthopnea, SOB at rest, shortness of breath, SOB with excertion, stridor, wheezing, others Cardiovascular: denies: chest pain, dizzy spells, diaphoresis, Dyspnea on exertion, edema, irregular heart beat, left arm pain, lightheadedness, palpitations, PND, syncope, others Gastrointestinal: denies: abdomen distended, abdominal pain, blood streaked bowels, constipated, diarrhea, dysphagia, difficulty swallowing, hematemesis, melena, nausea, poor appetite, poor fluid intake, rectal bleeding, rectal pain, vomiting, others Genitourinary: reports: dysuria, pain; denies: burning, flank pain, frequency, hematuria, incontinence, penile discharge, penile sore, testicle pain, testicle swelling, urgency, others Neurological: denies: dizziness, fainting, headache, left sided numbness, left sided weakness, numbness, paresthesia, pre-existing deficit, right sided numbness, right sided weakness, seizure, speech problems, tingling, tremors, weakness, others Musculoskeletal: denies: back pain, gout, joint pain, joint swelling, muscle p ain, muscle stiffness, neck pain, others Integumetry: denies: bruises, change in color, change in hair/nails, dryness, laceration, lesions, lumps, rash, wounds, others Allergic/Immunocompromised: denies: Difficulty Healing, Frequent Infections, Hives, Itching, others Hematologic/Lymphatic: denies: anemia, blood clots, easy bleeding, easy bruising, swollen glands, others Endocrine: denies: excessive hunger, excessive sweating, excessive thirst, excessive urination, flushing, intolerance to cold, intolerance to heat, unexplained weight gain, unexplained weight loss, others Psychiatric: denies: anxiety, bipolar disorder, depression, hopeless, panic disorder, schizophrenia, sleepless, suicidal, others Physical Exam General Appearance: No Apparent Distress, Normal HEENT: Pharynx Normal Neck: Full Range of Motion, Non-Tender Respiratory: Lungs Clear, No Respiratory Distress, Normal Breath Sounds Cardiovascular: No Edema, No Murmur, Normal Peripheral Pulses, Regular Rate/Rhythm Breast Exam: Deferred Gastrointestinal: No Organomegaly, Non Tender, No Pulsatile Mass, Normal Bowel Sounds, Soft, Suprapubic (tenderness ) Genitalia: Deferred Pelvic: Deferred Rectal: Deferred Extremities: Normal range of motion, No pedal edema Musculoskeletal : Apperance: Normal Neurologic: Alert, No Motor Deficits, Normal Affect, Normal Mood, No Sensory Deficits Cerebellar Function: Normal Reflexes: Normal Skin: Dry, Normal Color, Warm Lymphatic: No Adenopathy Was a procedure done? Was a procedure done?: No Differential Diagnosis Kidney stone (Female): N/A Urinary Problem (Male): Bladder Outlet, Bladder Obstruction, Prostatitis, Urinary Retention, UTI X-Ray, Labs, Meds, VS Vital Signs Date Time Temp Pulse Resp B/P (MAP) Pulse Ox O2 Delivery O2 Flow Rate FiO2 03/18/25 00:30 97.8 103 16 199/99 (132) 95 97.8 X-Ray, Labs, Meds, VS Comment HEAD CATHETER REPLACED GOOD RETURN 800 OUT PATIENT NOTES MODERATE IMPROVEMENT REQUESTING DISCHARGE AT THIS TIME. ADVISED TO CONTINUE HIS ANTIBIOTICS PRESCRIBED ADVISED TO FOLLOW UP WITH HIS UROLOGIST SCHEDULED. ER RETURN PRECAUTIONS DISCUSSED PATIENT INDICATES UNDERSTANDING AND AGREES WITH DISCHARGE PLAN OF CARE. Time of 1ST Reevaluation: 00:27 Reevaluation 1ST: Unchanged Time of 2ND Reevaluation: 02:10 Reevaluation 2ND: Improved Patient Education/Counseling: Diagnosis, Treatment, Prognosis, Need For Follow Up Family Education/Counseling: No Family Present SEPSIS Sepsis Screen Date sepsis recognized/suspect: Mar 18, 2025 Time Sepsis recognized/suspect: 0030 Recent Procedure: No On Antibiotic Therapy: No Respiratory Rate >20: No Heart Rate >90: No Temp<36 C (96.8 F) or >38.3 C: No SBP <90 or MAP <65 mmHG: No New Acute Mental Status Change: No Is the patient on CPAP, BIPAP,: No Physician Orders Insert/Manage Urinary Catheter QSHIFT (03/18/25 01:31) Vital Signs Date Time Temp Pulse Resp B/P (MAP) Pulse Ox O2 Delivery O2 Flow Rate FiO2 03/18/25 00:30 97.8 103 16 199/99 (263) 95 97.8 Departure 1 Departure Time of Disposition: 02:20 Impression: Primary Impression: Complication of Head catheter Qualified Codes: T83.9XXA - Unspecified complication of genitourinary prosthetic device, implant and graft, initial encounter Disposition: HOME / SELF CARE / HOMELESS Condition: Stable Discharged With: Self Critical Care Note Critical Care Time?: No Stability Stability form required: YANCI Saravia Mar 18, 2025 02:05
== END 2025-03-18 02:27 | disposition home or self-care (01) ==
LOC: ER 00:24
DX: T83.9XXA Unspecified complication of genitourinary prosthetic device, implant and graft, initial encounter (principal); F10.90 Alcohol use, unspecified, uncomplicated; E11.9 Type 2 diabetes mellitus without complications; Z86.2 Personal history of diseases of the blood and blood-forming organs and certain disorders involving the immune mechanism; Z85.9 Personal history of malignant neoplasm, unspecified; Z87.440 Personal history of urinary (tract) infections; Z79.899 Other long term (current) drug therapy; Y90.9 Presence of alcohol in blood, level not specified; Y69 Unspecified misadventure during surgical and medical care; Y92.89 Other specified places as the place of occurrence of the external cause
CPT/HCPCS: 51702; 99284; A4315

== ENCOUNTER 2025-03-28 15:25 | Emergency (ER) | payer BC, MEDICAID ==
[~2025-03-28] VITALS: Ht 185.4 cm; Wt 96.5 kg
[2025-03-28 15:28] VITALS: BP 172/95; PULSE 126; RESP 18; TEMP 98; O2SAT 96
--- NOTE | 2025-03-28 15:56 | ED.PDOC ---
General HPI Comments This is a 79 year old male presenting to the ED with chief complaint of urinary retention. Patient reports that he currently has a Maher catheter in place for bladder dysfunction, however, today his Maher stopped draining into his leg bag completely. Patient relays that he needs his Maher catheter flushed or changed. Patient states he is now having associated abdominal pressure due to not urinating. Patient denies any N/V/D, dizziness, fever, chills, dysuria, or hematuria. Patient finished antibiotics last week for a previous UTI. Chief Complaint: Urinary Time Seen by MD: 15:51 Primary Care Provider: TATE Nguyen notes: Nurses Notes, Medications, Allergies Allergies: Coded Allergies: NO KNOWN ALLERGIES (Unverified , 12/03/21) Home Meds Active Scripts Ciprofloxacin Hcl (Cipro) 500 Mg Tab, 1 TAB PO BID for 10 Days, #20 TAB Prov:TYRON LYONS MD 01/10/24 Cephalexin (KEFLEX CAPSULE) 250 Mg Cp, 1 CAP PO QID for 10 Days, #40 CAP Prov:TYRON LYONS MD 11/20/23 Sulfamethoxazole W/Trimethopri (Bactrim Ds Tablet) 1 Tab Tb, 1 TAB PO BID for 3 Days, #6 TAB Prov:GENEVA GONSALVES MOUTHPIECE MAKER 09/17/23 Sulfamethoxazole W/Trimethopri (Trimethoprim/Sulfamethoxa) 1 Tab Tab, 1 TAB PO BID for 7 Days, #14 TAB 0 Refills Prov:GUZMAN FELDER 09/06/23 Diphenhydramine Hcl (Benadryl Allergy) 25 Mg Cap, 1 CAP PO Q6HP PRN, #30 CAP 0 Refills Prov:SANDRA DORADO PAC 06/06/23 Hydralazine Hcl (Hydralazine Hcl) 50 Mg Tab, 1 TAB PO TID, #20 TAB 0 Refills Prov:SANDRA DORADO PAC 06/06/23 Amoxicillin & Pot Clavulanate (Augmentin) 500 Mg Tab, 1 TAB PO BID, #20 TAB Prov:MATILDE OSCAR MD 12/16/22 Reported Medications Capecitabine (Xeloda) 500 Mg Tab, 2 TAB PO BID for colon cancer 12/15/22 Information Source: Patient Mode of Arrival: Ambulatory Severity: Moderate Inability to void: Complete Timing: Hours Duration: Since onset Has not urinated for: Hours Prehospital treatment: None Onset: Spontaneous Symptoms: Inability to void History of: BPH, Chronic indwelling maher Location: Suprapubic Penile discharge: None Modifying factors: None associated signs and symptoms: Inability to Void Past Medical History PAST MEDICAL HISTORY: Anemia, Cancer, DM, UTI'S Past Medical History (Other): Bladder muscle dysfunction Surgical History: Denies all surgeries Family History Family History: Reviewed,noncontributory to illness Social History Smoker: Non-Smoker Alcohol: Occasionally Drugs: Denies Drug Use Lives In: Home Constitutional: denies: chills, diaphoresis, fatigue, fever, malaise, sweats, weakness, others EENTM: denies: blurred vision, double vision, ear bleeding, ear discharge, ear drainage, ear pain, ear ringing, eye pain, eye redness, hearing loss, mouth pain, mouth swelling, nasal discharge, nose bleeding, nose congestion, nose pain, photophobia, tearing, throat pain, throat swelling, voice changes, others Respiratory: denies: cough, hemoptysis, orthopnea, SOB at rest, shortness of breath, SOB with excertion, stridor, wheezing, others Cardiovascular: denies: chest pain, dizzy spells, diaphoresis, Dyspnea on exertion, edema, irregular heart beat, left arm pain, lightheadedness, palpitations, PND, syncope, others Gastrointestinal: denies: abdomen distended, abdominal pain, blood streaked bowels, constipated, diarrhea, dysphagia, difficulty swallowing, hematemesis, melena, nausea, poor appetite, poor fluid intake, rectal bleeding, rectal pain, vomiting, others Genitourinary: reports: others (Retention); denies: burning, dysuria, flank pain, frequency, hematuria, incontinence, penile discharge, penile sore, pain, testicle pain, testicle swelling, urgency Neurological: denies: dizziness, fainting, headache, left sided numbness, left sided weakness, numbness, paresthesia, pre-existing deficit, right sided numbness, right sided weakness, seizure, speech problems, tingling, tremors, weakness, others Musculoskeletal: denies: back pain, gout, joint pain, joint swelling, muscle pain, muscle stiffness, neck pain, others Integumetry: denies: bruises, change in color, change in hair/nails, dryness, laceration, lesions, lumps, rash, wounds, others Allergic/Immunocompromised: denies: Difficulty Healing, Frequent Infections, Hives, Itching, others Hematologic/Lymphatic: denies: anemia, blood clots, easy bleeding, easy bruising, swollen glands, others Endocrine: denies: excessive hunger, excessive sweating, excessive thirst, excessive urination, flushing, intolerance to cold, intolerance to heat, unexplained weight gain, unexplained weight loss, others Psychiatric: denies: anxiety, bipolar disorder, depression, hopeless, panic disorder, schizophrenia, sleepless, suicidal, others All Other Systems: Reviewed and Negative Physical Exam General Appearance: Moderate Distress, Normal HEENT: Normal ENT Inspection, Pharynx Normal, TMs Normal Neck: Full Range of Motion, Non-Tender, Normal, Normal Inspection Respiratory: Chest Non-Tender, Lungs Clear, No Accessory Muscle Use, No Respiratory Distress, Normal Breath Sounds Cardiovascular: No Edema, No JVD, No Murmur, No Gallop, Normal Peripheral Pulses, Regular Rate/Rhythm Breast Exam: Deferred Gastrointestinal: No Organomegaly, Non Tender, No Pulsatile Mass, Normal Bowel Sounds, Soft Genitalia: Deferred Pelvic: Deferred Rectal: Deferred Extremities: No calf tenderness, Normal capillary refill, Normal inspection, Normal range of motion, Non-tender, No pedal edema Musculoskeletal : Apperance: Normal Neurologic: Alert, claims administrator II-XII nml as Tested, No Motor Deficits, Normal Affect, Normal Mood, No Sensory Deficits Cerebellar Function: Normal Reflexes: Normal Skin: Dry, Normal Color, Warm Peripheral Pulses: 3+ Radial (R), 3+ Radial (L) Lymphatic: No Adenopathy Was a procedure done? Was a procedure done?: No Differential Diagnosis Kidney stone (Female): Musculoskeletal pain, Urinary obstruction, Urolithiasis X-Ray, Labs, Meds, VS Vital Signs Date Time Temp Pulse Resp B/P (MAP) Pulse Ox O2 Delivery O2 Flow Rate FiO2 03/28/25 15:28 98.0 126 18 172/95 96 98.0 Lab Test 03/28/25 16:20 Range/Units White Blood Count 9.9 4.4-10.8 10^3/uL Red Blood Count 5.73 4.5-5.90 10^6/uL Hemoglobin 12.6 L 13.5-17.5 g/dL Hematocrit 40.1 L 41.0-53.0 % Mean Corpuscular Volume 70.0 L 80.0-100.0 fL Mean Corpuscular Hemoglobin 22.1 L 28.0-32.0 pg Mean Corpuscular Hemoglobin Concent 31.5 L 32.0-36.0 g/dL Red Cell Distribution Width 18.7 H 11.8-14.3 % Platelet Count 328 140-450 10^3/uL Mean Platelet Volume 8.9 6.9-10.8 fL Neutrophils (%) (Auto) 83.6 H 37.0-80.0 % Lymphocytes (%) (Auto) 8.2 L 10.0-50.0 % Monocytes (%) (Auto) 5.2 0.0-12.0 % Eosinophils (%) (Auto) 2.3 0.0-7.0 % Basophils (%) (Auto) 0.7 0.0-2.0 % Neutrophils # (Auto) 8.3 1.6-8.6 10 ^3/uL Lymphocytes # (Auto) 0.8 0.4-5.4 10 ^3/uL Monocytes # (Auto) 0.5 0-1.3 10 ^3/uL Eosinophils # (Auto) 0.2 0-0.8 10 ^3/uL Basophils # (Auto) 0.1 0-0.2 10 ^3/uL Nucleated Red Blood Cells 0.0 % Sodium Level 140 136-145 mmol/L Potassium Level 4.7 3.5-5.1 mmol/L Chloride Level 105 98-107 mmol/L Carbon Dioxide Level 24 20-31 mmol/L Anion Gap 11 5-15 Blood Urea Nitrogen 30 H 9-23 mg/dL Creatinine 1.83 H 0.700-1.30 mg/dL Glomerular Filtration Rate Calc 37 >90 mL/min BUN/Creatinine Ratio 16.4 10.0-20.0 Serum Glucose 190 H 74-106 mg/dL Calcium Level 9.5 8.7-10.4 mg/dL Patient alert. Maher catheter in place. Vitals stable. Answering questions. Tachycardia. Blood pressure elevated. Urology consultation. Maher catheter placement. Possible urinary tract infection. Explained to the patient. Continue to monitor. Time of 1ST Reevaluation: 16:51 Reevaluation 1ST: Unchanged Patient Education/Counseling: Diagnosis, Treatment Family Education/Counseling: No Family Present SEPSIS Sepsis Screen Date sepsis recognized/suspect: Mar 28, 2025 Time Sepsis recognized/suspect: 1530 Recent Procedure: No On Antibiotic Therapy: No Respiratory Rate >20: No Heart Rate >90: Yes Temp<36 C (96.8 F) or >38.3 C: No SBP <90 or MAP <65 mmHG: No New Acute Mental Status Change: No Is the patient on CPAP, BIPAP,: No Physician Orders Urinalysis (03/28/25 15:54) Ok To Change Maher (03/28/25 15:54) Vital Signs Date Time Temp Pulse Resp B/P (MAP) Pulse Ox O2 Delivery O2 Flow Rate FiO2 03/28/25 15:28 98.0 126 18 172/95 96 98.0 Laboratory Tests Test 03/28/25 16:20 White Blood Count 9.9 10^3/uL (4.4-10.8) Departure 1 Departure Time of Disposition: 16:31 Impression: Primary Impression: Hypertensive urgency Additional Impressions: Tachycardia Malfunction of Maher catheter Qualified Codes: T83.011A - Breakdown (mechanical) of indwelling urethral catheter, initial encounter Disposition: ADMITTED INPATIENT Admit to: Med Surg Condition: Guarded Critical Care Note Critical Care Time?: No Stability Stability form required: No Heart Score Heart Score: Heart Score Response (Comments) Value History N/A 0 EKG N/A 0 Age N/A 0 Risk Factors N/A 0 Troponin N/A 0 Total 0 I personally scribed for CHAU CAGE MD ([email or web address]) on 03/28/25 at 15:56. Electronically submitted by Lan Lockhart ([email or web address]). CHAU CAGE MD Mar 28, 2025 15:56
[2025-03-28 16:49] LABS: Hemoglobin 12.6 g/dL (13.5-17.5); Mean Corpuscular Hemoglobin 22.1 pg (28.0-32.0); Mean Corpuscular Volume 70.0 fL (80.0-100.0)
[2025-03-28 16:50] LABS: Hematocrit 40.1 % (41.0-53.0); Nucleated Red Blood Cells % 0.0 %
[2025-03-28 16:53] LABS: Chloride 105 mmol/L (98-107); Potassium 4.7 mmol/L (3.5-5.1); Sodium 140 mmol/L (136-145)
[2025-03-28 16:54] LABS: Anion Gap 11 (5-15); Calcium 9.5 mg/dL (8.7-10.4); Carbon Dioxide 24 mmol/L (20-31)
[2025-03-28 16:59] LABS: BUN/Creatinine Ratio 16.4 (10.0-20.0)
[2025-03-28 17:00] LABS: Blood Urea Nitrogen 30 mg/dL (9-23); Glucose 190 mg/dL (74-106)
[2025-03-28 19:42] LABS: Urine Protein, UAD 1+ (Negative)
== END 2025-03-29 02:25 | disposition left against medical advice (07) ==
LOC: ER 15:25
DX: T83.098A Other mechanical complication of other urinary catheter, initial encounter (principal); I16.0 Hypertensive urgency; R00.0 Tachycardia, unspecified; E11.9 Type 2 diabetes mellitus without complications; Z79.899 Other long term (current) drug therapy
CPT/HCPCS: 36415; 51702; 80048; 81001; 85025; 99284; A4315

== ENCOUNTER 2025-04-10 22:21 | Emergency (ER) | payer BC, MEDICAID ==
[~2025-04-10] VITALS: Ht 185.4 cm; Wt 97.8 kg
[2025-04-10 23:21] LABS: Hematocrit 36.6 % (41.0-53.0); Hemoglobin 11.5 g/dL (13.5-17.5); Mean Corpuscular Hemoglobin 21.5 pg (28.0-32.0); Mean Corpuscular Volume 68.7 fL (80.0-100.0); Nucleated Red Blood Cells % 0.0 %
[2025-04-10 23:35] LABS: Alanine Aminotransferase 29 U/L (7-40); Albumin 4.5 g/dL (3.2-4.8); Alkaline Phosphatase 75 U/L (46-116); Anion Gap 7 (5-15); BUN/Creatinine Ratio 18.2 (10.0-20.0); Calcium 9.3 mg/dL (8.7-10.4); Carbon Dioxide 28 mmol/L (20-31); Chloride 105 mmol/L (98-107); Potassium 4.5 mmol/L (3.5-5.1); Sodium 140 mmol/L (136-145); Total Protein 6.8 g/dL (5.7-8.2)
[2025-04-10 23:36] LABS: Bilirubin, Total 0.4 mg/dL (0.2-1.0)
[2025-04-10 23:39] LABS: Blood Urea Nitrogen 28 mg/dL (9-23); Glucose 121 mg/dL (74-106)
--- NOTE | 2025-04-11 00:30 | DVH ---
EXAM: XY CHEST PORTABLE CLINICAL HISTORY: Shortness of breath TECHNIQUE: Single AP view of the chest WID: COMPARISON: None FINDINGS: Lines and tubes: None Chest: The heart size and pulmonary vasculature is within normal limits. Calcified plaque projects over the aortic arch. No pleural effusion, pneumothorax, or consolidation. Linear bibasilar scarring or atelectasis. The osseous structures are grossly intact. Multilevel thoracic spondylosis. IMPRESSION: No acute cardiopulmonary abnormality. Linear bibasilar opacities likely atelectasis or scarring.
[2025-04-11] MEDS: MECLIZINE HCL 25 MG TAB PO ONE (01:09)
[2025-04-11 01:12] VITALS: PULSE 80; RESP 18; O2SAT 95
[2025-04-11] MEDS ORDERED: MECL1TAB42 PO (01:58)
--- NOTE | 2025-04-11 01:58 | ED.PDOC ---
History of Present Illness HPI Comments This patient is a 79-year-old male who arrives to the ED today with family members due to complaints of some dizziness events. Patient states that a few hours prior to arrival, he had gotten up off his couch when he felt dizzy. Patient states the dizziness has reduced some but is still existing. Patient denies any recent traumatic history. Patient does have history of multiple comorbidities including hypertension and cardiac issues. Patient was mildly hypertensive on arrival. Chief Complaint: Dizziness Time Seen by MD: 22:35 Primary Care Provider: TATE Nguyen Notes: Nurses Notes Allergies: Coded Allergies: NO KNOWN ALLERGIES (Unverified , 12/03/21) Home Meds Active Scripts Ciprofloxacin Hcl (Cipro) 500 Mg Tab, 1 TAB PO BID for 10 Days, #20 TAB Prov:TYRON LYONS MD 01/10/24 Cephalexin (KEFLEX CAPSULE) 250 Mg Cp, 1 CAP PO QID for 10 Days, #40 CAP Prov:TYRON LYONS MD 11/20/23 Sulfamethoxazole W/Trimethopri (Bactrim Ds Tablet) 1 Tab Tb, 1 TAB PO BID for 3 Days, #6 TAB Prov:GENEVA GONSALVES Q BOILER SERVICE TECHNICIAN 09/17/23 Sulfamethoxazole W/Trimethopri (Trimethoprim/Sulfamethoxa) 1 Tab Tab, 1 TAB PO BID for 7 Days, #14 TAB 0 Refills Prov:GUZMAN FELDER 09/06/23 Diphenhydramine Hcl (Benadryl Allergy) 25 Mg Cap, 1 CAP PO Q6HP PRN, #30 CAP 0 Refills Prov:SANDRA DORADO PAC 06/06/23 Hydralazine Hcl (Hydralazine Hcl) 50 Mg Tab, 1 TAB PO TID, #20 TAB 0 Refills Prov:SANDRA DORADO PAC 06/06/23 Amoxicillin & Pot Clavulanate (Augmentin) 500 Mg Tab, 1 TAB PO BID, #20 TAB Prov:MATILDE OSCAR MD 12/16/22 Reported Medications Capecitabine (Xeloda) 500 Mg Tab, 2 TAB PO BID for colon cancer 12/15/22 Information Source: Patient, Relative Mode of Arrival: Ambulatory Severity: Mild Timing: Hours Duration: Intermittent Prehospital treatment: None Past Medical History PAST MEDICAL HISTORY: Anemia, Cancer, DM, HTN, UTI'S Surgical History: Denies all surgeries Family History Family History: Reviewed,noncontributory to illness Social History Smoker: Non-Smoker Alcohol: Occasionally Drugs: Denies Drug Use Lives In: Home Constitutional: denies: chills, diaphoresis, fatigue, fever, malaise, sweats, weakness, others EENTM: denies: blurred vision, double vision, ear bleeding, ear discharge, ear drainage, ear pain, ear ringing, eye pain, eye redness, hearing loss, mouth pain, mouth swelling, nasal discharge, nose bleeding, nose congestion, nose pain, photophobia, tearing, throat pain, throat swelling, voice changes, others Respiratory: denies: cough, hemoptysis, orthopnea, SOB at rest, shortness of breath, SOB with excertion, stridor, wheezing, others Cardiovascular: denies: chest pain, dizzy spells, diaphoresis, Dyspnea on exertion, edema, irregular heart beat, left arm pain, lightheadedness, palpitations, PND, syncope, others Gastrointestinal: denies: abdomen distended, abdominal pain, blood streaked bowels, constipated, diarrhea, dysphagia, difficulty swallowing, hematemesis, melena, nausea, poor appetite, poor fluid intake, rectal bleeding, rectal pain, vomiting, others Genitourinary: denies: burning, dysuria, flank pain, frequency, hematuria, incontinence, penile discharge, penile sore, pain, testicle pain, testicle swelling, urgency, others Neurological: reports: dizziness; denies: fainting, headache, left sided numbness, left sided weakness, numbness, paresthesia, pre-existing deficit, right sided numbness, right sided weakness, seizure, speech problems, tingling, tremors, weakness, others Musculoskeletal: denies: back pain, gout, joint pain, joint swelling, muscle pain, muscle stiffness, neck pain, others Integumetry: denies: bruises, change in color, change in hair/nails, dryness, laceration, lesions, lumps, rash, wounds, others Allergic/Immunocompromised: denies: Difficulty Healing, Frequent Infections, Hives, Itching, others Hematologic/Lymphatic: denies: anemia, blood clots, easy bleeding, easy bruising, swollen glands, others Endocrine: denies: excessive hunger, excessive sweating, excessive thirst, excessive urination, flushing, intolerance to cold, intolerance to heat, unexplained weight gain, unexplained weight loss, others Psychiatric: denies: anxiety, bipolar disorder, depression, hopeless, panic disorder, schizophrenia, sleepless, suicidal, others Physical Exam General Appearance: Mild Distress (Patient will go in mild distress at time of evaluation. Patient states as long as he does not get up he is not dizzy.), Normal HEENT: Head (Cranial exam was unremarkable at time of evaluation. No signs of trauma. No skull depressions or deformities.), Normal ENT Inspection, Pharynx Normal, TMs Normal Neck: Full Range of Motion, Non-Tender, Normal, Normal Inspection Respiratory: Chest Non-Tender, Lungs Clear, No Accessory Muscle Use, No Respiratory Distress, Normal Breath Sounds Cardiovascular: No Edema, No JVD, No Murmur, No Gallop, Normal Peripheral Pulses, Regular Rate/Rhythm Breast Exam: Deferred Gastrointestinal: No Organomegaly, Non Tender, No Pulsatile Mass, Normal Bowel Sounds, Soft Genitalia: Deferred Pelvic: Deferred Rectal: Deferred Extremities: No calf tenderness, Normal capillary refill, Normal inspection, Normal range of motion, Non-tender, No pedal edema Neurologic: Alert Cerebellar Function: NOT DONE Reflexes: NOT DONE Skin: Dry, Normal Color, Warm Lymphatic: No Adenopathy Was a procedure done? Was a procedure done?: No Differential Dx Considerations may include: Inner ear concern, hyperglycemia, electrolyte abnormality, sepsis, acute coronary syndrome, viral illness X-Ray, Labs, Meds, VS Vital Signs Date Time Temp Pulse Resp B/P (MAP) Pulse Ox O2 Delivery O2 Flow Rate FiO2 04/11/25 01:12 80 18 95 Room Air* 0 21 04/11/25 01:07 98.4 80 18 152/92 (112) 95 98.4 04/10/25 22:22 98.5 93 18 162/88 96 98.5 Lab Test 04/11/25 00:15 04/10/25 23:08 Range/Units Troponin I High Sensitivity 14 13 </=54 ng/L White Blood Count 7.0 4.4-10.8 10^3/uL Red Blood Count 5.33 4.5-5.90 10^6/uL Hemoglobin 11.5 L 13.5-17.5 g/dL Hematocrit 36.6 L 41.0-53.0 % Mean Corpuscular Volume 68.7 L 80.0-100.0 fL Mean Corpuscular Hemoglobin 21.5 L 28.0-32.0 pg Mean Corpuscular Hemoglobin Concent 31.4 L 32.0-36.0 g/dL Red Cell Distribution Width 19.0 H 11.8-14.3 % Platelet Count 242 140-450 10^3/uL Mean Platelet Volume 8.8 6.9-10.8 fL Neutrophils (%) (Auto) 67.1 37.0-80.0 % Lymphocytes (%) (Auto) 16.6 10.0-50.0 % Monocytes (%) (Auto) 8.8 0.0-12.0 % Eosinophils (%) (Auto) 6.8 0.0-7.0 % Basophils (%) (Auto) 0.7 0.0-2.0 % Neutrophils # (Auto) 4.7 1.6-8.6 10 ^3/uL Lymphocytes # (Auto) 1.2 0.4-5.4 10 ^3/uL Monocytes # (Auto) 0.6 0-1.3 10 ^3/uL Eosinophils # (Auto) 0.5 0-0.8 10 ^3/uL Basophils # (Auto) 0 0-0.2 10 ^3/uL Nucleated Red Blood Cells 0.0 % D-Dimer, Quantitative 0.32 0.0-0.49 mg/L FEU Sodium Level 140 136-145 mmol/L Potassium Level 4.5 3.5-5.1 mmol/L Chloride Level 105 98-107 mmol/L Carbon Dioxide Level 28 20-31 mmol/L Anion Gap 7 5-15 Blood Urea Nitrogen 28 H 9-23 mg/dL Creatinine 1.54 H 0.700-1.30 mg/dL Glomerular Filtration Rate Calc 46 >90 mL/min BUN/Creatinine Ratio 18.2 10.0-20.0 Serum Glucose 121 H 74-106 mg/dL Calcium Level 9.3 8.7-10.4 mg/dL Total Bilirubin 0.4 0.2-1.0 mg/dL Aspartate Amino Transferase (AST) 23 13-40 U/L Alanine Aminotransferase (ALT) 29 7-40 U/L Alkaline Phosphatase 75 46-116 U/L B-Type Natriuretic Peptide 50.69 0-100 pg/mL Total Protein 6.8 5.7-8.2 g/dL Albumin 4.5 3.2-4.8 g/dL Current Medications Medications (Trade) Dose Ordered Sig/Magdalena Route Start Time Stop Time Status Last Admin Meclizine HCl (Antivert Tablet) 25 mg ONCE ONCE PO 04/10/25 23:15 04/10/25 23:16 DC 04/11/25 01:09 X-Ray, Labs, Meds, VS Comment All studies performed in the ED were evaluated by me personally. While serum studies confirmed the patient's kidney issues, no acute findings were noted.. EKG revealed a sinus rhythm with a rate of 91. Prolonged IN interval, probable left atrial enlargement, right bundle-branch block as well as left ventricular hypertrophy noted. IN interval 218 and QT interval of 382. There were no acute findings on today's visit. Patient responded well to medication dispensed. Adv ised patient utilize medication as needed as well as good hydration and healthy nutrition. If symptoms continue, patient will need to follow up with the primary care provider for evaluation and management. Time of 1ST Reevaluation: 01:56 Reevaluation 1ST: Improved Consultation: PCP Patient Education/Counseling: Diagnosis, Treatment Family Education/Counseling: Diagnosis, Treatment SEPSIS Sepsis Screen Date sepsis recognized/suspect: Apr 10, 2025 Time Sepsis recognized/suspect: 2228 Recent Procedure: No On Antibiotic Therapy: No Respiratory Rate >20: No Heart Rate >90: No Temp<36 C (96.8 F) or >38.3 C: No SBP <90 or MAP <65 mmHG: No New Acute Mental Status Change: No Is the patient on CPAP, BIPAP,: No Physician Orders Chest Portable (04/10/25 23:01) Urinalysis (04/10/25 23:01) Heplock Iv (04/10/25 23:01) Electrocardigram (04/10/25 23:01) Vital Signs Date Time Temp Pulse Resp B/P (MAP) Pulse Ox O2 Delivery O2 Flow Rate FiO2 04/11/25 01:12 80 18 95 Room Air* 0 21 04/11/25 01:07 98.4 80 18 152/92 (112) 95 98.4 04/10/25 22:22 98.5 93 18 162/88 96 98.5 Laboratory Tests Test 04/10/25 23:08 White Blood Count 7.0 10^3/uL (4.4-10.8) Medications Medications Dose Ordered Sig/Magdalena Route Start Time Stop Time Status Last Admin Dose Admin Meclizine HCl 25 mg ONCE ONCE PO 04/10/25 23:15 04/10/25 23:16 DC 04/11/25 01:09 Departure 1 Departure Time of Disposition: 01:57 Impression: Primary Impression: Dizziness Disposition: HOME / SELF CARE / HOMELESS Condition: Stable Additional Instructions: Advised patient utilize medication as needed for symptomatic relief. If symptoms continue, patient will need to follow up with the primary care provider for continued evaluation and management and possible neurologic referral. e-Prescriptions Meclizine HCl (Meclizine 25) 25 Mg Tab 25 MG PO Q8HP PRN, #10 TAB Prov: SANDRA DORADO PAC 04/11/25 Discharged With: Self, Relative Critical Care Note Critical Care Time?: No Stability Stability form required: No Heart Score Heart Score: Heart Score Response (Comments) Value History Slightly Suspicious 0 EKG Repolarization Disturb 1 Age >65 2 Risk Factors 1 or 2 risk factors 1 Troponin Normal limit 0 Total 4 SANDRA DORADO PAC Apr 11, 2025 01:58
[2025-04-11 04:27] VITALS: BP 135/75; PULSE 65; RESP 20; TEMP 97; O2SAT 99
--- NOTE | 2025-04-11 12:02 | ECG ---
[facility] Test Date: 2025-04-10 Test Time: 22:44:48 Pat Name: TERRIE HECTOR Department: Room: Gender: M Customer Account Executive: VALENTINA : 1945 Requested By: SANDRA DORADO Order Number: [id number] Reading MD: Bhavin Robertson Measurements Intervals [place] Rate: 91 P: 9 IA: 218 QRS: -82 QRSD: 132 T: 55 QT: 382 QTc: 471 Interpretive Statements Sinus rhythm Prolonged IA interval Probable left atrial enlargement RBBB and LAFB Left ventricular hypertrophy Electronically Signed On 04-14-2025 22:47:41 PDT by Bhavin Robertson Please click the below link to view image of tracing.
== END 2025-04-11 04:26 | disposition home or self-care (01) ==
LOC: ER 22:21
DX: R42 Dizziness and giddiness (principal); F10.90 Alcohol use, unspecified, uncomplicated; E11.9 Type 2 diabetes mellitus without complications; I10 Essential (primary) hypertension; Z87.440 Personal history of urinary (tract) infections; Z79.899 Other long term (current) drug therapy; Y90.9 Presence of alcohol in blood, level not specified
CPT/HCPCS: 36415; 71045; 80053; 83880; 84484; 85025; 85379; 93005; 99285; J8597

== ENCOUNTER 2025-05-24 08:00 | Emergency (ER) | payer BC, MEDICAID ==
[~2025-05-24] VITALS: Ht 185.4 cm; Wt 107.8 kg
[~2025-05-24 08:00] MED LIST changes: +MECL1TAB42 PO
[2025-05-24 08:20] VITALS: BP 144/99; PULSE 95; RESP 18; TEMP 98.3; O2SAT 94
--- NOTE | 2025-05-24 08:41 | ED.PDOC ---
General HPI Comments This is a 79-year-old gentleman that comes in for a catheter malfunction. Patient states it is leaking at the insertion site states he just change the bag proximally 2 hours ago. But he usually gets his calf change every 3-4 weeks and that is not been done recently. Patient denies any other symptoms.. Chief Complaint: Urinary Time Seen by MD: 08:37 Primary Care Provider: TATE Nguyen notes: Nurses Notes, Medications, Allergies Allergies: Coded Allergies: NO KNOWN ALLERGIES (Unverified , 12/03/21) Home Meds Active Scripts Meclizine HCl (Meclizine 25) 25 Mg Tab, 25 MG PO Q8HP PRN, #10 TAB Prov:SANDRA DORADO PAC 04/11/25 Ciprofloxacin Hcl (Cipro) 500 Mg Tab, 1 TAB PO BID for 10 Days, #20 TAB Prov:TYRON LYONS MD 01/10/24 Cephalexin (KEFLEX CAPSULE) 250 Mg Cp, 1 CAP PO QID for 10 Days, #40 CAP Prov:TYRON LYONS MD 11/20/23 Sulfamethoxazole W/Trimethopri (Bactrim Ds Tablet) 1 Tab Tb, 1 TAB PO BID for 3 Days, #6 TAB Prov:GENEVA GONSALVES SPIRAL TUBE WINDER HELPER 09/17/23 Sulfamethoxazole W/Trimethopri (Trimethoprim/Sulfamethoxa) 1 Tab Tab, 1 TAB PO BID for 7 Days, #14 TAB 0 Refills Prov:GUZMAN FELDER 09/06/23 Diphenhydramine Hcl (Benadryl Allergy) 25 Mg Cap, 1 CAP PO Q6HP PRN, #30 CAP 0 Refills Prov:SANDRA DORADO PAC 06/06/23 Hydralazine Hcl (Hydralazine Hcl) 50 Mg Tab, 1 TAB PO TID, #20 TAB 0 Refills Prov:SANDRA DORADO PAC 06/06/23 Amoxicillin & Pot Clavulanate (Augmentin) 500 Mg Tab, 1 TAB PO BID, #20 TAB Prov:MATILDE OSCAR MD 12/16/22 Reported Medications Capecitabine (Xeloda) 500 Mg Tab, 2 TAB PO BID for colon cancer 12/15/22 Information Source: Patient Mode of Arrival: Ambulatory Past Medical History PAST MEDICAL HISTORY: Anemia, Cancer, DM, HTN, UTI'S Surgical History: Denies all surgeries Family History Family History: Reviewed,noncontributory to illness Social History Smoker: Non-Smoker Alcohol: Occasionally Drugs: Denies Drug Use Lives In: Home Genitourinary: reports: others (Briceno catheter malfunction) All Other Systems: Reviewed and Negative Physical Exam General Appearance: No Apparent Distress, Normal HEENT: Normal ENT Inspection, PERRL/EOMI, Pharynx Normal Neck: Non-Tender, Normal Inspection, Supple Respiratory: Inspiration, Normal Breath Sounds Cardiovascular: Regular Rate/Rhythm Breast Exam: Deferred Gastrointestinal: Non Tender, Soft Genitalia: Other (Briceno catheter) Pelvic: Deferred Rectal: Deferred Extremities: Normal inspection, Normal range of motion, Non-tender Neurologic: Alert, Normal Affect, Normal Mood Cerebellar Function: NOT DONE Reflexes: NOT DONE Skin: Dry, Warm Lymphatic: No Adenopathy Was a procedure done? Was a procedure done?: No Differential Diagnosis Kidney stone (Female): N/A Urinary Problem (Male): Bladder Obstruction, Urinary Retention X-Ray, Labs, Meds, VS Vital Signs Date Time Temp Pulse Resp B/P (MAP) Pulse Ox O2 Delivery O2 Flow Rate FiO2 05/24/25 08:04 98.1 95 18 144/99 93 98.1 X-Ray, Labs, Meds, VS Comment Patient seen and examined by me. Patient is here only for Briceno catheter bag change. No labs were ordered. Patient was offered a new catheter bag but decided not to take it he will be sent home to follow up with his regular doctor on Monday.. Time of 1ST Reevaluation: 08:54 Reevaluation 1ST: Unchanged Patient Education/Counseling: Diagnosis, Treatment, Need For Follow Up Family Education/Counseling: No Family Present SEPSIS Sepsis Screen Date sepsis recognized/suspect: May 24, 2025 Time Sepsis recognized/suspect: 0804 Recent Procedure: No On Antibiotic Therapy: No Respiratory Rate >20: No Heart Rate >90: No Temp<36 C (96.8 F) or >38.3 C: No SBP <90 or MAP <65 mmHG: No New Acute Mental Status Change: No Is the patient on CPAP, BIPAP,: No Vital Signs Date Time Temp Pulse Resp B/P (MAP) Pulse Ox O2 Delivery O2 Flow Rate FiO2 05/24/25 08:04 98.1 95 18 144/99 93 98.1 Departure 1 Departure Time of Disposition: 08:54 Impression: Primary Impression: Complication of Briceno catheter Disposition: 01 HOME / SELF CARE / HOMELESS Condition: Good Additional Instructions: Please continue to drink lots of liquids Follow-up with your doctor regarding your catheter change or your nurse at home Discharged With: Self Critical Care Note Critical Care Time?: No Stability Stability form required: NELSON Aleman May 24, 2025 08:40
[2025-05-24] MEDS ORDERED: CIPR-173 PO (21:49)
[2025-05-25] MEDS ORDERED: CIPR500T4 PO (18:43)
== END 2025-05-24 09:00 | disposition home or self-care (01) ==
LOC: ER 08:00
DX: T83.9XXA Unspecified complication of genitourinary prosthetic device, implant and graft, initial encounter (principal); I10 Essential (primary) hypertension; E11.9 Type 2 diabetes mellitus without complications; Z79.899 Other long term (current) drug therapy; Z87.440 Personal history of urinary (tract) infections; D64.9 Anemia, unspecified; Y92.89 Other specified places as the place of occurrence of the external cause

== ENCOUNTER 2025-05-24 19:09 | Emergency (ER) | payer BC, MEDICAID ==
[~2025-05-24] VITALS: Ht 185.4 cm; Wt 102.0 kg
[2025-05-24 21:16] VITALS: BP 153/87; PULSE 108; RESP 20; TEMP 97.6; O2SAT 95
[2025-05-24 21:37] LABS: Urine Amorphous Crystal FEW /hpf (None Seen); Urine Protein, UAD 2+ (Negative)
[2025-05-24] MEDS ORDERED: CIPR-173 PO (21:49)
--- NOTE | 2025-05-24 21:49 | ED.PDOC ---
General HPI Comments s Pt presentse to ED with cc of his maher catehter not draining. Pt has had the catheter in for 3 years d/t urinary retention. This catheter was last changed 1 month ago. Denies fever, chills, nausea, vomiting, weakness, chest pain, shortness of breath or difficulty breathing. Chief Complaint: Urinary Time Seen by MD: 19:23 Primary Care Provider: TATE Reviewed notes: Nurses Notes, Medications, Allergies Allergies: Coded Allergies: NO KNOWN ALLERGIES (Unverified , 12/03/21) Home Meds Active Scripts Meclizine HCl (Meclizine 25) 25 Mg Tab, 25 MG PO Q8HP PRN, #10 TAB Prov:SANDRA DORADO PAC 04/11/25 Ciprofloxacin Hcl (Cipro) 500 Mg Tab, 1 TAB PO BID for 10 Days, #20 TAB Prov:TYRON LYONS MD 01/10/24 Cephalexin (KEFLEX CAPSULE) 250 Mg Cp, 1 CAP PO QID for 10 Days, #40 CAP Prov:TYRON LYONS MD 11/20/23 Sulfamethoxazole W/Trimethopri (Bactrim Ds Tablet) 1 Tab Tb, 1 TAB PO BID for 3 Days, #6 TAB Prov:GENEVA GONSALVES PRINT TRAFFIC MANAGER 09/17/23 Sulfamethoxazole W/Trimethopri (Trimethoprim/Sulfamethoxa) 1 Tab Tab, 1 TAB PO BID for 7 Days, #14 TAB 0 Refills Prov:GUZMAN FELDER 09/06/23 Diphenhydramine Hcl (Benadryl Allergy) 25 Mg Cap, 1 CAP PO Q6HP PRN, #30 CAP 0 Refills Prov:SANDRA DORADO PAC 06/06/23 Hydralazine Hcl (Hydralazine Hcl) 50 Mg Tab, 1 TAB PO TID, #20 TAB 0 Refills Prov:SANDRA DORADO PAC 06/06/23 Amoxicillin & Pot Clavulanate (Augmentin) 500 Mg Tab, 1 TAB PO BID, #20 TAB Prov:MATILDE OSCAR MD 12/16/22 Reported Medications Capecitabine (Xeloda) 500 Mg Tab, 2 TAB PO BID for colon cancer 12/15/22 Mode of Arrival: Ambulatory Past Medical History PAST MEDICAL HISTORY: Anemia, Cancer, DM, HTN, UTI'S Surgical History: Denies all surgeries Family History Family History: Reviewed,noncontributory to illness Social History Smoker: Non-Smoker Alcohol: Occasionally Drugs: Denies Drug Use Lives In: Home All Other Systems: Reviewed and Negative (see hpi) Physical Exam General Appearance: No Apparent Distress, Normal HEENT: Pharynx Normal Neck: Full Range of Motion, Non-Tender Respiratory: Lungs Clear, No Respiratory Distress, Normal Breath Sounds Cardiovascular: No Murmur, Normal Peripheral Pulses, Regular Rate/Rhythm Breast Exam: Deferred Gastrointestinal: No Organomegaly, Non Tender, Soft Genitalia: Deferred Pelvic: Deferred Rectal: Deferred Extremities: Normal capillary refill, Non-tender Musculoskeletal : Apperance: Normal Neurologic: Alert, No Motor Deficits, Normal Affect, Normal Mood, No Sensory Deficits Cerebellar Function: Normal Reflexes: NOT DONE Skin: Dry, Normal Color, Warm Lymphatic: No Adenopathy Was a procedure done? Was a procedure done?: No Differential Diagnosis Kidney stone (Female): N/A Kidney stone (Male): Pyelonephritis, Urinary obstruction, Renal infarction, Urinary tract infection Urinary Problem (Male): UTI X-Ray, Labs, Meds, VS Vital Signs Date Time Temp Pulse Resp B/P (MAP) Pulse Ox O2 Delivery O2 Flow Rate FiO2 05/24/25 21:16 97.6 108 20 153/87 (109) 95 97.6 05/24/25 21:16 108 20 95 Room Air 05/24/25 19:12 98.7 129 20 189/113 95 98.7 Lab Test 05/24/25 20:03 Range/Units Urine Color Colorless Yellow Urine Clarity Turbid H Clear Urine pH 6.0 5.0-9.0 Urine Specific [place] 1.014 1.001-1.035 Urine Protein 2+ H Negative Urine Ketones Negative Negative Urine Blood 3+ H Negative /uL Urine Nitrite Negative Negative Urine Bilirubin Negative Negative Urine Urobilinogen Normal Negative mg/dL Urine Leukocyte Esterase 2+ Negative /uL Urine RBC 118 0 - 3 /hpf Urine Microscopic WBC 22 H 0-3 /HPF Urine Squamous Epithelial Cells None seen <5 /hpf Urine Amorphous Crystals Few None Seen /hpf Urine Bacteria Few H None Seen /hpf Urine Glucose Normal Normal mg/dL X-Ray, Labs, Meds, VS Comment Maher catheter replaced noted blood clots flushed clean urine approximate 500 out. UA positive for infection. We will script trial of antibiotics advised take medication as prescribed side effects discussed. Advised to rest increase p.o. fluids with electrolytes. Advised to avoid caffeinated drinks. Advised to follow up with his PCP in 2-3 days consider repeat urine and culture if symptoms persist. ER return precautions given patient indicates understanding agrees with discharge plan of care. Time of 1ST Reevaluation: 19:23 Reevaluation 1ST: Unchanged Time of 2ND Reevaluation: 21:47 Reevaluation 2ND: Improved Patient Education/Counseling: Diagnosis, Treatment, Need For Follow Up Family Education/Counseling: No Family Present SEPSIS Sepsis Screen Date sepsis recognized/suspect: May 24, 2025 Time Sepsis recognized/suspect: 1911 Recent Procedure: No On Antibiotic Therapy: No Respiratory Rate >20: No Heart Rate >90: Yes Temp<36 C (96.8 F) or >38.3 C: No SBP <90 or MAP <65 mmHG: No New Acute Mental Status Change: No Is the patient on CPAP, BIPAP,: No Physician Orders D/C Maher (05/24/25 20:01) Maher Catheters (05/24/25 ) Vital Signs Date Time Temp Pulse Resp B/P (MAP) Pulse Ox O2 Delivery O2 Flow Rate FiO2 05/24/25 21:16 97.6 108 20 153/87 (109) 95 97.6 05/24/25 21:16 108 20 95 Room Air 05/24/25 19:12 98.7 129 20 189/113 95 98.7 Departure 1 Departure Time of Disposition: 21:46 Impression: Primary Impression: Acute UTI (urinary tract infection) Additional Impressions: Urinary retention due to benign prostatic hyperplasia Urinary catheter (Maher) change required Disposition: 01 HOME / SELF CARE / HOMELESS Condition: Stable e-Prescriptions Ciprofloxacin Hcl (Cipro) 500 Mg Tab 500 MG PO BID for 10 Days, #20 TAB Prov: YANCI CRONIN 05/24/25 Discharged With: Self Critical Care Note Critical Care Time?: No Stability Stability form required: YANCI Saravia May 24, 2025 21:49
[2025-05-25] MEDS ORDERED: CIPR500T4 PO (18:43)
== END 2025-05-24 21:55 | disposition home or self-care (01) ==
LOC: ER 19:09
DX: N39.0 Urinary tract infection, site not specified (principal); R33.8 Other retention of urine; I10 Essential (primary) hypertension; E11.9 Type 2 diabetes mellitus without complications; Z46.6 Encounter for fitting and adjustment of urinary device; Z79.899 Other long term (current) drug therapy
CPT/HCPCS: 51702; 81001

== ENCOUNTER 2025-06-24 14:44 | Emergency (ER) | payer BC, MEDICAID ==
[~2025-06-24] VITALS: Ht 175.3 cm; Wt 108.1 kg
[2025-06-24 14:46] VITALS: TEMP 97.9; O2SAT 97
--- NOTE | 2025-06-24 16:07 | ED.PDOC ---
General HPI Comments 79 year old male with PMHx colon cancer, DM, HTN, anemia, prostatic hyperplasia presents to the ED with a chief complaint of Briceno catheter malfunction onset today (06/24/25). Patient states he noticed Briceno catheter bag is not attaching properly. Catheter was placed 2 weeks ago, states he needs new Briceno catheter. Last ED visit was 05/24/25 for Briceno catheter replacement. Patient states he ran out of HTN medication about 1 week ago. No other symptoms or modifying factors present at this time. Denies dysuria Denies abdominal pain nausea vomiting diarrhea Denies fever chills Denies chest pain shortness of breath Denies penile discharge Denies headache blurred vision dizziness Chief Complaint: Tube Replacement Time Seen by MD: 16:00 Primary Care Provider: TATE Nguyen notes: Nurses Notes, Medications, Allergies Allergies: Coded Allergies: NO KNOWN ALLERGIES (Unverified , 12/03/21) Home Meds Active Scripts Meclizine HCl (Meclizine 25) 25 Mg Tab, 25 MG PO Q8HP PRN, #10 TAB Prov:SANDRA DORADO PAC 04/11/25 Ciprofloxacin Hcl (Cipro) 500 Mg Tab, 1 TAB PO BID for 10 Days, #20 TAB Prov:TYRON LYONS MD 01/10/24 Cephalexin (KEFLEX CAPSULE) 250 Mg Cp, 1 CAP PO QID for 10 Days, #40 CAP Prov:TYRON LYONS MD 11/20/23 Sulfamethoxazole W/Trimethopri (Bactrim Ds Tablet) 1 Tab Tb, 1 TAB PO BID for 3 Days, #6 TAB Prov:GENEVA GONSALVES TRAIN DRIVER 09/17/23 Sulfamethoxazole W/Trimethopri (Trimethoprim/Sulfamethoxa) 1 Tab Tab, 1 TAB PO BID for 7 Days, #14 TAB 0 Refills Prov:GUZMAN FELDER 09/06/23 Diphenhydramine Hcl (Benadryl Allergy) 25 Mg Cap, 1 CAP PO Q6HP PRN, #30 CAP 0 Refills Prov:SANDRA DORADO PAC 06/06/23 Hydralazine Hcl (Hydralazine Hcl) 50 Mg Tab, 1 TAB PO TID, #20 TAB 0 Refills Prov:SANDRA DORADO PAC 06/06/23 Amoxicillin & Pot Clavulanate (Augmentin) 500 Mg Tab, 1 TAB PO BID, #20 TAB Prov:MATILDE OSCAR MD 12/16/22 Reported Medications Capecitabine (Xeloda) 500 Mg Tab, 2 TAB PO BID for colon cancer 12/15/22 Information Source: Patient Mode of Arrival: Ambulatory Severity: Moderate Timing: Hours Duration: Since onset Prehospital treatment: None Onset: Spontaneous Past Medical History PAST MEDICAL HISTORY: Anemia, Cancer, DM, HTN, UTI'S Surgical History: Denies all surgeries Family History Family History: Reviewed,noncontributory to illness Social History Smoker: Non-Smoker Alcohol: Occasionally Drugs: Denies Drug Use Lives In: Home All Other Systems: Reviewed and Negative (as per HPI) Physical Exam General Appearance: Normal HEENT: Normal ENT Inspection, Pharynx Normal, TMs Normal Neck: Full Range of Motion, Non-Tender, Normal, Normal Inspection Respiratory: Chest Non-Tender, Lungs Clear, No Accessory Muscle Use, No Respiratory Distress, Normal Breath Sounds Cardiovascular: No Edema, No JVD, No Murmur, No Gallop, Normal Peripheral Pulses, Regular Rate/Rhythm Breast Exam: Deferred Gastrointestinal: No Organomegaly, Non Tender, No Pulsatile Mass, Normal Bowel Sounds, Soft Genitalia: Deferred Pelvic: Deferred Rectal: Deferred Extremities: No calf tenderness, Normal capillary refill, Normal inspection, Normal range of motion, Non-tender, No pedal edema Musculoskeletal : Apperance: Normal Neurologic: Alert, mop worker II-XII nml as Tested, No Motor Deficits, Normal Affect, Normal Mood, No Sensory Deficits Cerebellar Function: Normal Reflexes: Normal Skin: Dry, Normal Color, Warm Lymphatic: No Adenopathy Was a procedure done? Was a procedure done?: No Differential Diagnosis Kidney stone (Female): Other X-Ray, Labs, Meds, VS Vital Signs Date Time Temp Pulse Resp B/P (MAP) Pulse Ox O2 Delivery O2 Flow Rate FiO2 06/24/25 16:10 94 18 160/101 (120) 06/24/25 14:46 97.9 101 19 97 97.9 X-Ray, Labs, Meds, VS Comment 79 year old male with PMHx colon cancer, DM, HTN, anemia, prostatic hyperplasia presents to the ED with a chief complaint of Briceno catheter malfunction onset today (06/24/25). Patient arrives alert and oriented, ABC's intact, afebrile, vital signs stable, saturating well in room air Additional MDM Review of External, Non-ED records: External records reviewed. Discussion with independent historian (EMS, family) history obtained from the patient/parents (if applicable) at bedside Chronic conditions affecting care: colon cancer, DM, HTN, anemia, prostatic hyperplasia Social determinants of health affecting care: ETOH occasionally Consideration of admission (observation or admission): I considered escalation of care to admission for this patient, however given the reassuring workup, the patient is safe for outpatient management. On reevaluation, patient had symptomatic improvement. Patient is stable for discharge at this time. External notes reviewed. Test results and diagnostic imaging interpreted. All diagnostic findings, discharge care, education and instructions provided Follow-up with PCP in 2 to 3 days Patient verbalized understanding and agreed to treatment plan Vital signs stable, afebrile, no acute distress noted Patient ambulatory with strong steady gait Advised to return precautions for any new or worsening symptoms, return to ER immediately for re-evaluation Patient is aware that the purpose of this visit was for an acute medical emergency requiring emergent stabilization. Chronic conditions, including malignancies have not been ruled out. Patient is instructed to follow up with PCP as directed and discharge instructions for continued care and workup. If unable to arrange follow-up, patient is to return to the emergency department for reassessment. Patient (parent or legal guardian if applicable) was given verbal and written discharge instructions and acknowledges understanding. Time of 1ST Reevaluation: 16:30 Reevaluation 1ST: Improved Patient Education/Counseling: Diagnosis, Treatment Family Education/Counseling: No Family Present SEPSIS Sepsis Screen Date sepsis recognized/suspect: Jun 24, 2025 Time Sepsis recognized/suspect: 1446 Recent Procedure: No On Antibiotic Therapy: No Respiratory Rate >20: No Heart Rate >90: Yes Temp<36 C (96.8 F) or >38.3 C: No SBP <90 or MAP <65 mmHG: No New Acute Mental Status Change: No Is the patient on CPAP, BIPAP,: No Physician Orders Ok To Change Janak (06/24/25 16:09) Vital Signs Date Time Temp Pulse Resp B/P (MAP) Pulse Ox O2 Delivery O2 Flow Rate FiO2 06/24/25 16:10 94 18 160/101 (120) 06/24/25 14:46 97.9 101 19 97 97.9 Departure 1 Departure Time of Disposition: 16:11 Impression: Primary Impression: Briceno catheter problem Qualified Codes: T83.9XXA - Unspecified complication of genitourinary prosthetic device, implant and graft, initial encounter Additional Impression: Elevated blood pressure reading Disposition: LEFT AWOL/ELOPED Condition: Stable Discharged With: Self Critical Care Note Critical Care Time?: No Stability Stability form required: No Heart Score Heart Score: Heart Score Response (Comments) Value History N/A 0 EKG N/A 0 Age N/A 0 Risk Factors N/A 0 Troponin N/A 0 Total 0 I personally scribed for MIREYA SALGADO NP ([email or web address]) on 06/24/25 at 16:07. Electronically submitted by Catarina White ([email or web address]). I personally scribed for MIREYA SALGADO NP ([email or web address]) on 06/24/25 at 16:11. Electronically submitted by Catarina White ([email or web address]). MIREYA SALGADO NP Jun 24, 2025 16:07
[2025-06-24 16:10] VITALS: BP 160/101; PULSE 94; RESP 18
== END 2025-06-24 17:44 | disposition left against medical advice (07) ==
LOC: ER 14:44
DX: T83.9XXA Unspecified complication of genitourinary prosthetic device, implant and graft, initial encounter (principal); R03.0 Elevated blood-pressure reading, without diagnosis of hypertension; E11.9 Type 2 diabetes mellitus without complications; I10 Essential (primary) hypertension; Z79.899 Other long term (current) drug therapy
CPT/HCPCS: 51702; 99284; A4315

== ENCOUNTER 2025-08-03 09:52 | Emergency (ER) | payer BC, MEDICAID ==
[~2025-08-03] VITALS: Ht 185.4 cm; Wt 108.8 kg
[2025-08-03 09:53] VITALS: BP 142/85; PULSE 103; RESP 15; TEMP 97.3; O2SAT 94
--- NOTE | 2025-08-03 11:05 | ED.PDOC ---
History of Present Illness HPI Comments This is a 79 year old male presenting to the ED with chief complaint of Briceno catheter dysfunction. Patient reports that his Briceno catheter became slightly dislodged last night, causing leakage. Patient relays that he needs a replacement of his catheter at this time. Patient notes his last change was a little under a month ago. Patient denies any dysuria, hematuria, abdominal pain, penile pain, or flank pain. Chief Complaint: Tube Replacement Time Seen by MD: 11:04 Primary Care Provider: TATE Nguyen Notes: Nurses Notes, Medications, Allergies Allergies: Coded Allergies: NO KNOWN ALLERGIES (Unverified , 12/03/21) Home Meds Active Scripts Meclizine HCl (Meclizine 25) 25 Mg Tab, 25 MG PO Q8HP PRN, #10 TAB Prov:SANDRA DORADO PAC 04/11/25 Ciprofloxacin Hcl (Cipro) 500 Mg Tab, 1 TAB PO BID for 10 Days, #20 TAB Prov:TYRON LYONS MD 01/10/24 Cephalexin (KEFLEX CAPSULE) 250 Mg Cp, 1 CAP PO QID for 10 Days, #40 CAP Prov:TYRON LYONS MD 11/20/23 Sulfamethoxazole W/Trimethopri (Bactrim Ds Tablet) 1 Tab Tb, 1 TAB PO BID for 3 Days, #6 TAB Prov:GENEVA GONSALVES LOANS CONSULTANT 09/17/23 Sulfamethoxazole W/Trimethopri (Trimethoprim/Sulfamethoxa) 1 Tab Tab, 1 TAB PO BID for 7 Days, #14 TAB 0 Refills Prov:GUZMAN FELDER 09/06/23 Diphenhydramine Hcl (Benadryl Allergy) 25 Mg Cap, 1 CAP PO Q6HP PRN, #30 CAP 0 Refills Prov:SANDRA DORADO PAC 06/06/23 Hydralazine Hcl (Hydralazine Hcl) 50 Mg Tab, 1 TAB PO TID, #20 TAB 0 Refills Prov:SANDRA DORADO PAC 06/06/23 Amoxicillin & Pot Clavulanate (Augmentin) 500 Mg Tab, 1 TAB PO BID, #20 TAB Prov:MATILDE OSCAR MD 12/16/22 Reported Medications Capecitabine (Xeloda) 500 Mg Tab, 2 TAB PO BID for colon cancer 4/20/23 Information Source: Patient Mode of Arrival: Ambulatory Severity: Moderate Timing: Hours Duration: Since onset Prehospital treatment: None Medication Refill: For: Other (Briceno catheter dysfunction) Past Medical History PAST MEDICAL HISTORY: Anemia, Cancer, DM, HTN, UTI'S Surgical History: Denies all surgeries Family History Family History: Reviewed,noncontributory to illness Social History Smoker: Non-Smoker Alcohol: Occasionally Drugs: Denies Drug Use Lives In: Home Constitutional: denies: chills, diaphoresis, fatigue, fever, malaise, sweats, weakness, others EENTM: denies: blurred vision, double vision, ear bleeding, ear discharge, ear drainage, ear pain, ear ringing, eye pain, eye redness, hearing loss, mouth pain, mouth swelling, nasal discharge, nose bleeding, nose congestion, nose pain, photophobia, tearing, throat pain, throat swelling, voice changes, others Respiratory: denies: cough, hemoptysis, orthopnea, SOB at rest, shortness of breath, SOB with excertion, stridor, wheezing, others Cardiovascular: denies: chest pain, dizzy spells, diaphoresis, Dyspnea on exertion, edema, irregular heart beat, left arm pain, lightheadedness, palpitations, PND, syncope, others Gastrointestinal: denies: abdomen distended, abdominal pain, blood streaked bowels, constipated, diarrhea, dysphagia, difficulty swallowing, hematemesis, melena, nausea, poor appetite, poor fluid intake, rectal bleeding, rectal pain, vomiting, others Genitourinary: denies: burning, dysuria, flank pain, frequency, hematuria, incontinence, penile discharge, penile sore, pain, testicle pain, testicle swelling, urgency, others Neurological: denies: dizziness, fainting, headache, left sided numbness, left sided weakness, numbness, paresthesia, pre-existing deficit, right sided numbness, right sided weakness, seizure, speech problems, tingling, tremors, weakness, others Musculoskeletal: denies: back pain, gout, joint pain, joint swelling, muscle pain, muscle stiffness, neck pain, others Integumetry: denies: bruises, change in color, change in hair/nails, dryness, laceration, lesions, lumps, rash, wounds, others Allergic/Immunocompromised: denies: Difficulty Healing, Frequent Infections, Hives, Itching, others Hematologic/Lymphatic: denies: anemia, blood clots, easy bleeding, easy bruising, swollen glands, others Endocrine: denies: excessive hunger, excessive sweating, excessive thirst, excessive urination, flushing, intolerance to cold, intolerance to heat, unexplained weight gain, unexplained weight loss, others Psychiatric: denies: anxiety, bipolar disorder, depression, hopeless, panic disorder, schizophrenia, sleepless, suicidal, others All Other Systems: Reviewed and Negative Physical Exam General Appearance: No Apparent Distress, Normal HEENT: Normal ENT Inspection, Pharynx Normal, TMs Normal Neck: Full Range of Motion, Non-Tender, Normal, Normal Inspection Respiratory: Chest Non-Tender, Lungs Clear, No Accessory Muscle Use, No Respiratory Distress, Normal Breath Sounds Cardiovascular: No Edema, No JVD, No Murmur, No Gallop, Normal Peripheral Pulses, Regular Rate/Rhythm Breast Exam: Deferred Gastrointestinal: No Organomegaly, Non Tender, No Pulsatile Mass, Normal Bowel Sounds, Soft Genitalia: Other (Briceno catheter in place) Pelvic: Deferred Rectal: Deferred Extremities: No calf tenderness, Normal capillary refill, Normal inspection, Normal range of motion, Non-tender, No pedal edema Musculoskeletal : Apperance: Normal Neurologic: Alert, bench precision assembler II-XII nml as Tested, No Motor Deficits, Normal Affect, Normal Mood, No Sensory Deficits Cerebellar Function: Normal Reflexes: Normal Skin: Dry, Normal Color, Warm Lymphatic: No Adenopathy Was a procedure done? Was a procedure done?: No Differential Dx Considerations may include: Briceno catheter dysfunction X-Ray, Labs, Meds, VS Vital Signs Date Time Temp Pulse Resp B/P (MAP) Pulse Ox O2 Delivery O2 Flow Rate FiO2 08/03/25 09:53 97.3 103 15 142/85 94 97.3 Time of 1ST Reevaluation: 12:04 Reevaluation 1ST: Improved Patient Education/Counseling: Diagnosis, Treatment Family Education/Counseling: No Family Present SEPSIS Sepsis Screen Date sepsis recognized/suspect: Aug 03, 2025 Time Sepsis recognized/suspect: 954 Recent Procedure: No On Antibiotic Therapy: No Respiratory Rate >20: No Heart Rate >90: No Temp<36 C (96.8 F) or >38.3 C: No SBP <90 or MAP <65 mmHG: No New Acute Mental Status Change: No Is the patient on CPAP, BIPAP,: No Physician Orders Insert Briecno Catheter QSHIFT (08/03/25 10:46) Vital Signs Date Time Temp Pulse Resp B/P (MAP) Pulse Ox O2 Delivery O2 Flow Rate FiO2 08/03/25 09:53 97.3 103 15 142/85 94 97.3 Departure 1 Departure Time of Disposition: 12:09 (Patient with Briceno catheter problem. Briceno catheter was exchanged. We will discharge patient home with outpatient follow up) Impression: Primary Impression: Complication of Briceno catheter Disposition: HOME / SELF CARE / HOMELESS Condition: Stable Additional Instructions: Your Briceno catheter was changed. Please follow up with the regular doctor. Discharged With: Self Critical Care Note Critical Care Time?: No Stability Stability form required: No Heart Score Heart Score: Heart Score Response (Comments) Value History N/A 0 EKG N/A 0 Age N/A 0 Risk Factors N/A 0 Troponin N/A 0 Total 0 I personally scribed for LORRAINE HENDRIX MD ([email or web address]) on 08/03/25 at 11:05. Electronically submitted by Lan Lockhart ([email or web address]). LORRAINE HENDRIX MD Aug 03, 2025 11:05
== END 2025-08-03 13:19 | disposition home or self-care (01) ==
LOC: ER 09:52
DX: T83.091A Other mechanical complication of indwelling urethral catheter, initial encounter (principal); I10 Essential (primary) hypertension; E11.9 Type 2 diabetes mellitus without complications; Z79.899 Other long term (current) drug therapy; Z87.440 Personal history of urinary (tract) infections; Y84.6 Urinary catheterization as the cause of abnormal reaction of the patient, or of later complication, without mention of misadventure at the time of the procedure
CPT/HCPCS: 51702

== ENCOUNTER 2025-08-13 05:20 | Emergency (ER) | payer BC, MEDICAID ==
[~2025-08-13] VITALS: Ht 185.4 cm; Wt 110.0 kg
--- NOTE | 2025-08-13 05:51 | ECG ---
[facility] Test Date: 2025-08-13 Test Time: 05:48:10 Pat Name: TERRIE HECTOR Department: ED Room: Gender: M Biology Tutor: ANN : 1945 Requested By: CIARA CALLOWAY Order Number: [id number] Reading MD: Bhavin Robertson Measurements Intervals [place] Rate: 115 P: 28 MO: 163 QRS: -82 QRSD: 140 T: 58 QT: 333 QTc: 461 Interpretive Statements Sinus tachycardia RBBB and LAFB Probable left ventricular hypertrophy Inferior infarct, acute Lateral leads are also involved Electronically Signed On 08-14-2025 17:25:09 PST by Bhavin Robertson Please click the below link to view image of tracing.
[2025-08-13 07:09] VITALS: PULSE 103; RESP 17; O2SAT 94
--- NOTE | 2025-08-13 07:28 | ED.PDOC ---
General HPI Comments 79-year-old male that presents to the ED for chief complaint problem with Briceno catheter. Patient states that he was at [facility] one week prior and states he had Briceno catheter placed and was discharged. Patient stated he was discharged and followed up by primary care. Patient states that since yesterday his Briceno is not properly draining that he has been feeling pressure-like sensation in his urinary tract radiating to his bladder. Patient in the ED otherwise denied any associated blood or associated urinary symptoms including dysuria hematuria frequency or urgency. Patient in the ED otherwise denies any other symptoms. Chief Complaint: Urinary Time Seen by MD: 07:25 Primary Care Provider: TATE Nguyen notes: Medications, Allergies Allergies: Coded Allergies: NO KNOWN ALLERGIES (Unverified , 12/03/21) Home Meds Active Scripts Meclizine HCl (Meclizine 25) 25 Mg Tab, 25 MG PO Q8HP PRN, #10 TAB Prov:SANDRA DORADO PAC 04/11/25 Ciprofloxacin Hcl (Cipro) 500 Mg Tab, 1 TAB PO BID for 10 Days, #20 TAB Prov:TYRON LYONS MD 01/10/24 Cephalexin (KEFLEX CAPSULE) 250 Mg Cp, 1 CAP PO QID for 10 Days, #40 CAP Prov:TYRON LYONS MD 11/20/23 Sulfamethoxazole W/Trimethopri (Bactrim Ds Tablet) 1 Tab Tb, 1 TAB PO BID for 3 Days, #6 TAB Prov:GENEVA GONSALVES DIRECTOR OF APPLICATION DEVELOPMENT 09/17/23 Sulfamethoxazole W/Trimethopri (Trimethoprim/Sulfamethoxa) 1 Tab Tab, 1 TAB PO BID for 7 Days, #14 TAB 0 Refills Prov:GUZMAN FELDER 09/06/23 Diphenhydramine Hcl (Benadryl Allergy) 25 Mg Cap, 1 CAP PO Q6HP PRN, #30 CAP 0 Refills Prov:SANDRA DORADO PAC 06/06/23 Hydralazine Hcl (Hydralazine Hcl) 50 Mg Tab, 1 TAB PO TID, #20 TAB 0 Refills Prov:SANDRA DORADO 06/06/23 Amoxicillin & Pot Clavulanate (Augmentin) 500 Mg Tab, 1 TAB PO BID, #20 TAB Prov:MATILDE OSCAR MD 12/16/22 Reported Medications Capecitabine (Xeloda) 500 Mg Tab, 2 TAB PO BID for colon cancer 12/15/22 Information Source: Patient Mode of Arrival: Ambulatory Brought in by: self Past Medical History PAST MEDICAL HISTORY: Anemia, Cancer, DM, HTN, UTI'S Surgical History: Denies all surgeries Family History Family History: Reviewed,noncontributory to illness Social History Smoker: Non-Smoker Alcohol: Occasionally Drugs: Denies Drug Use Lives In: Home Constitutional: denies: chills, diaphoresis, fatigue, fever, malaise, sweats, weakness, others EENTM: denies: blurred vision, double vision, ear bleeding, ear discharge, ear drainage, ear pain, ear ringing, eye pain, eye redness, hearing loss, mouth pain, mouth swelling, nasal discharge, nose bleeding, nose congestion, nose pain, photophobia, tearing, throat pain, throat swelling, voice changes, others Respiratory: denies: cough, hemoptysis, orthopnea, SOB at rest, shortness of breath, SOB with excertion, stridor, wheezing, others Cardiovascular: denies: chest pain, dizzy spells, diaphoresis, Dyspnea on exertion, edema, irregular heart beat, left arm pain, lightheadedness, palpitations, PND, syncope, others Gastrointestinal: denies: abdomen distended, abdominal pain, blood streaked bowels, constipated, diarrhea, dysphagia, difficulty swallowing, hematemesis, melena, nausea, poor appetite, poor fluid intake, rectal bleeding, rectal pain, vomiting, others Genitourinary: reports: pain (pelvic pain), others; denies: burning, dysuria, flank pain, frequency, hematuria, incontinence, penile discharge, penile sore, testicle pain, testicle swelling, urgency Neurological: denies: dizziness, fainting, headache, left sided numbness, left sided weakness, numbness, paresthesia, pre-existing deficit, right sided numbness, right sided weakness, seizure, speech problems, tingling, tremors, weakness, others Musculoskeletal: denies: back pain, gout, joint pain, joint swelling, muscle pain, muscle stiffness, neck pain, others Integumetry: denies: bruises, change in color, change in hair/nails, dryness, laceration, lesions, lumps, rash, wounds, others Allergic/Immunocompromised: denies: Difficulty Healing, Frequent Infections, Hi ves, Itching, others Hematologic/Lymphatic: denies: anemia, blood clots, easy bleeding, easy bruising, swollen glands, others Endocrine: denies: excessive hunger, excessive sweating, excessive thirst, excessive urination, flushing, intolerance to cold, intolerance to heat, unexplained weight gain, unexplained weight loss, others Psychiatric: denies: anxiety, bipolar disorder, depression, hopeless, panic disorder, schizophrenia, sleepless, suicidal, others All Other Systems: Reviewed and Negative Physical Exam General Appearance: Mild Distress HEENT: Pharynx Normal Neck: Normal Inspection Respiratory: No Respiratory Distress Cardiovascular: No Edema Breast Exam: Deferred Gastrointestinal: No Organomegaly Genitalia: Normal Pelvic: Deferred Rectal: Deferred Extremities: No pedal edema Neurologic: No Motor Deficits Cerebellar Function: NOT DONE Reflexes: NOT DONE Skin: Normal Color Lymphatic: NOT DONE Was a procedure done? Was a procedure done?: No Differential Diagnosis Kidney stone (Female): N/A Urinary Problem (Male): Bladder Outlet, Bladder Obstruction, Post op Complications, Urethritis, Urinary Retention, UTI X-Ray, Labs, Meds, VS Vital Signs Date Time Temp Pulse Resp B/P (MAP) Pulse Ox O2 Delivery O2 Flow Rate FiO2 08/13/25 10:00 90 18 174/92 (119) 94 08/13/25 07:50 100 16 94 Room Air* 0 21 08/13/25 07:50 97.4 100 16 134/84 (101) 94 97.4 08/13/25 07:09 103 17 94 Room Air* 0 21 08/13/25 07:06 103 17 134/84 (101) 08/13/25 05:48 115 08/13/25 05:25 98.2 126 18 94 98.2 Lab Test 08/13/25 09:06 08/13/25 06:01 Range/Units Urine Color Colorless Yellow Urine Clarity Turbid H Clear Urine pH 6.0 5.0-9.0 Urine Specific [place] 1.014 1.001-1.035 Urine Protein 2+ H Negative Urine Ketones Negative Negative Urine Blood 3+ H Negative /uL Urine Nitrite 2+ H Negative Urine Bilirubin Negative Negative Urine Urobilinogen Normal Negative mg/dL Urine Leukocyte Esterase 3+ Negative /uL Urine RBC 24 0 - 3 /hpf Urine WBC Clumps Present None Seen /hpf Urine Microscopic WBC 638 H 0-3 /HPF Urine Squamous Epithelial Cells None seen <5 /hpf Urine Bacteria Few H None Seen /hpf Urine Glucose Normal Normal mg/dL Troponin I High Sensitivity 29 </=54 ng/L Time of 1ST Reevaluation: 08:00 Reevaluation 1ST: Unchanged Patient Education/Counseling: Diagnosis, Treatment Family Education/Counseling: No Family Present SEPSIS Sepsis Screen Date sepsis recognized/suspect: Aug 13, 2025 Time Sepsis recognized/suspect: 710 Recent Procedure: No On Antibiotic Therapy: No Respiratory Rate >20: No Heart Rate >90: No Temp<36 C (96.8 F) or >38.3 C: No SBP <90 or MAP <65 mmHG: No New Acute Mental Status Change: No Is the patient on CPAP, BIPAP,: No Vital Signs Date Time Temp Pulse Resp B/P (MAP) Pulse Ox O2 Delivery O2 Flow Rate FiO2 08/13/25 10:00 90 18 174/92 (119) 94 08/13/25 07:50 100 16 94 Room Air* 0 21 08/13/25 07:50 97.4 100 16 134/84 (101) 94 97.4 08/13/25 07:09 103 17 94 Room Air* 0 21 08/13/25 07:06 103 17 134/84 (101) 08/13/25 05:48 115 08/13/25 05:25 98.2 126 18 94 98.2 Departure 1 Departure Time of Disposition: 13:41 Impression: Primary Impression: Catheter-associated urinary tract infection Additional Impression: Complication of Briceno catheter Disposition: 01 HOME / SELF CARE / HOMELESS Condition: Stable Additional Instructions: You have a urinary tract infection. You were prescribed antibiotics. Please take as directed. You can take Tylenol Motrin as needed for pain. It is important that he follow up with the regular doctor within 1 week to ensure you are doing better. If your symptoms worsen or you have any other concerns then please return to the emergency room. e-Prescriptions Cefdinir (Cefdinir) 300 Mg Cap 1 CAP PO BID for 7 Days, #14 CAP Prov: LORRAINE HENDRIX MD 08/13/25 Discharged With: Self Critical Care Note Critical Care Time?: No Stability Stability form required: No Heart Score Heart Score: Heart Score Response (Comments) Value History N/A 0 EKG N/A 0 Age N/A 0 Risk Factors N/A 0 Troponin N/A 0 Total 0 I personally scribed for LORRAINE HENDRIX MD ([facility]) on 08/13/25 at 07:28. Electronically submitted by Philip Gonzalez ([facility]). LORRAINE HENDRIX MD Aug 13, 2025 07:28
[2025-08-13 07:50] VITALS: PULSE 100; RESP 16; TEMP 97.4; O2SAT 94
[2025-08-13 13:18] LABS: Urine Protein, UAD 2+ (Negative); Urine WBC Clumps PRESENT /hpf (None Seen)
[2025-08-13 13:52] VITALS: BP 170/82; PULSE 107; RESP 16; O2SAT 92
[2025-08-13] MEDS ORDERED: CEFD300C2 PO (13:52)
== END 2025-08-13 13:56 | disposition home or self-care (01) ==
LOC: ER 05:20
DX: T83.518A Infection and inflammatory reaction due to other urinary catheter, initial encounter (principal); Y92.89 Other specified places as the place of occurrence of the external cause; I10 Essential (primary) hypertension; E11.9 Type 2 diabetes mellitus without complications; D64.9 Anemia, unspecified; Z46.6 Encounter for fitting and adjustment of urinary device; Z79.899 Other long term (current) drug therapy; Z87.440 Personal history of urinary (tract) infections
CPT/HCPCS: 36415; 81001; 84484; 93005; 99285; J7030